=== PATIENT | male | born 1975 | race Caucasian/White ===

== ENCOUNTER 2020-05-08 10:22 | Inpatient (IN) | payer OTHER, SELFPAY ==
[2020-05-08] VITALS (29 sets, daily range): BP systolic 114–181; BP diastolic 82–99; PULSE 79–126; RESP 16–34; TEMP 37.3–39.1; O2SAT 95–100; BMI 23.7
--- NOTE | ~2020-05-08 | CT_ITS ---
EXAMINATION: CT brain wo con DATE: 05/08/2020 13:46 INDICATION: Seizure. Fall. Altered mental state. TECHNIQUE: Computed tomography (CT) of the head was performed without intravenous contrast. The mA wa s adjusted according to patient size. Iterative reconstruction technique was employed. Exam dose: 68 1.00 mGy-cm total exam DLP. COMPARISON: None FINDINGS: There is focal ill-defined asymmetric diminished attenuation in the right periventricular w nisha matter with some asymmetric impression upon the frontal horn of the right lateral ventricle. Rep eat examination with IV contrast or MRI evaluation is recommended to exclude any mass lesion at this site. Otherwise no intracranial mass lesion or hemorrhage, midline shift or mass effect is noted. There is nonspecific diminished attenuation of the cerebral white matter, likely due to chronic small vessel ischemic changes. No subdural or epidural hematoma is detected. No orbital mass lesion. No fracture or bone destruction of the cranial vault. There is mild soft tissue thickening of the sphenoid sinuses. The paranasal sinuses otherwise appear unremarkable. The mastoid air cells are normally developed and aerated. IMPRESSION: Asymmetrical-defined focal diminished attenuation in right periventricular area with imp ression upon the right frontal horn; recommend CT examination with IV contrast material or MR brain s can for further evaluation to exclude any possible malignant mass Nonspecific diminished attenuation cerebral white matter, likely due to chronic small vessel ischemic changes Reviewed, dictated and finalized at [facility]. Reviewed, dictated and finalized at location A. IMPRESSION: Asymmetrical-defined focal diminished attenuation in right periven tricular area with impression upon the right frontal horn; recommend CT examina tion with IV contrast material or MR brain scan for further evaluation to exclu de any possible malignant mass Nonspecific diminished attenuation cerebral white matter, likely due to chronic small vessel ischemic changes
--- NOTE | ~2020-05-08 | XR_ITS ---
XR chest PICC line 05/09/2020 15:44 Indication: PICC line placement Procedure: AP portable chest Comparison: 05/09/2020 Findings: NG tube in the stomach. Endotracheal tube tip 4.9 cm above the jacky. PICC line tip ascend s into the internal jugular vein, distal aspect not visualized. There is bilateral airspace disease w hich may represent edema or pneumonia. Moderate right pleural effusion. No pneumothorax. Impression: 1: Right subclavian PICC line tip extends into the internal jugular vein. 2: Bilateral airspace disease, edema versus pneumonia. 2: Right pleural effusion. Reviewed, dictated and finalized at location A. Impression: 1: Right subclavian PICC line tip extends into the internal jugular vein. 2: Bilateral airspace disease, edema versus pneumonia. 2: Right pleural effusion.
--- NOTE | ~2020-05-08 | XR_ITS ---
EXAMINATION: XR chest 1V portable INDICATION: Pneumonia, acute respiratory failure TECHNIQUE: Portable AP chest at 0600 hours COMPARISON: 05/09/2020 FINDINGS: The endotracheal tube ends approximately 5.0 cm above the jacky. The nasogastric tube is i n the stomach. A right upper extremity PICC ends with its tip at the superior cavoatrial junction. Th ere are unchanged airspace opacities throughout the right lung, worst in the lower lung zone. A small right pleural effusion is stable. There is no pneumothorax. IMPRESSION: 1. Unchanged airspace opacities of the right lung, suspected pneumonia on CT. Reviewed, dictated and finalized at location A. ER HELPER
--- NOTE | ~2020-05-08 | XR_ITS ---
EXAMINATION: XR chest 1V portable INDICATION: Acute respiratory failure, pneumonia TECHNIQUE: Portable AP chest at 0516 hours COMPARISON: 05/08/2020 FINDINGS: The endotracheal tube ends approximately 4.4 cm above the jacky. The nasogastric tube is f ollowed as far as the stomach. Its tip is beyond the inferior margin of the radiograph. Airspace opac ities of the right mid and lower lung zones are unchanged. Minimal airspace opacity of the left lung base is also stable. There is a small right pleural effusion. No pneumothorax is identified. The card iomediastinal silhouette is stable. IMPRESSION: 1. Stable airspace opacities of the lung bases and right midlung zone, likely atelectasis versus pneu monia. 2. Small right pleural effusion. Reviewed, dictated and finalized at location A. IMPRESSION: 1. Stable airspace opacities of the lung bases and right midlung zone, likely a telectasis versus pneumonia. 2. Small right pleural effusion.
--- NOTE | ~2020-05-08 | XR_ITS ---
EXAMINATION: XR chest 1V portable INDICATION: Acute respiratory failure, pneumonia TECHNIQUE: Portable AP chest at 0542 hours COMPARISON: 05/11/2020 FINDINGS: The endotracheal tube ends approximately 3.8 cm above the jacky. The nasogastric tube is f ollowed as far as the stomach. Its tip is beyond the inferior margin of the radiograph. A right upper extremity PICC ends with its tip in the distal superior vena cava. Airspace opacities of the right l gin persist without significant change. The left lung is clear. A small right pleural effusion is sta ble. The heart size is normal. No pneumothorax is identified. IMPRESSION: 1. Stable airspace opacities of the right lung, consistent with pneumonia. Reviewed, dictated and finalized at location A. TURNER
--- NOTE | ~2020-05-08 | XR_ITS ---
EXAMINATION: XR chest 1V portable INDICATION: Pneumonia, acute respiratory failure TECHNIQUE: Portable AP chest at 0558 hours COMPARISON: 05/10/2020 FINDINGS: The endotracheal tube ends approximately 5.1 cm above the jacky. The nasogastric tube is f ollowed as far as the stomach. Its tip is beyond the inferior margin of the radiograph. A right upper extremity PICC ends with its tip at the superior cavoatrial junction. Again seen are airspace opacit ies throughout the right lung, with worsening in the lower lung zone. A small stable right pleural ef fusion is present. There is no pneumothorax. The cardiomediastinal silhouette is stable. IMPRESSION: 1. Right lung airspace opacities with slight worsening in the lung base, likely pneumonia. Reviewed, dictated and finalized at location A. DEHYDRATOR OPERATOR
--- NOTE | ~2020-05-08 | CT_ITS ---
EXAMINATION: CT chest abdomen pelvis w con DATE: 05/09/2020 13:03 INDICATION: Intracranial masses on head CT, altered mental status, assess for malignancy. TECHNIQUE: Transaxial computed tomographic images of the chest, abdomen, and pelvis were obtained aft er the administration of 100 cc of Omnipaque 350 intravenous contrast. The dose-length product (DLP) was 1735.75 mGy-cm. Automated exposure control and iterative reconstruction technique were employed. COMPARISON: None FINDINGS: CHEST CT: There are airspace opacities involving much of the right lower lobe. There are patchy airspace opacit ies in the right lung apex as well as areas of cavitation. There are a few areas of fluid attenuation with apparent gas and cavitation in the right lower lobe. There is right hilar, subcarinal, right pa ratracheal, and right supraclavicular lymphadenopathy. In addition, there is a 2.2 x 2.1 cm right sup rahilar soft tissue density (image 49). No definite discrete mass is identified although the right lo wer lobe bronchus is not well demonstrated There are small pleural effusions. The endotracheal tube i s in adequate position. The heart size is normal. ABDOMEN/PELVIS CT: The nasogastric tube is in the stomach. The liver, spleen, pancreas, and adrenal glands are normal. T here is mild distention of the gallbladder which may be due to fasting state. The kidneys are unremar kable. There is calcified atherosclerosis of the aorta and many of the other arteries. No pathologica lly enlarged abdominal or pelvic lymph nodes are identified. There is no free intraperitoneal gas or evidence of bowel obstruction. The appendix is normal. A Gonzalez catheter, small amount of gas, and sma ll amount of contrast from earlier CT examination are present in the urinary bladder. A moderate volu me of stool is present in the rectum. There is also a moderate volume of colonic stool. There is foca l wall thickening of the colon at the hepatic flexure. IMPRESSION: 1. Right lower lobe airspace opacities with areas suggestive of pulmonary abscess or necrotizing pneu monia. 2. Right suprahilar soft tissue density, mass versus lymphadenopathy. 3. Right hilar, mediastinal, and supraclavicular lymphadenopathy. 4. Possible colonic wall thickening at the hepatic flexure which could be due to incomplete distentio n. Correlate with colonoscopy history. Reviewed, dictated and finalized at location A. IMPRESSION: 1. Right lower lobe airspace opacities with areas suggestive of pulmonary absce ss or necrotizing pneumonia. 2. Right suprahilar soft tissue density, mass versus lymphadenopathy. 3. Right hilar, mediastinal, and supraclavicular lymphadenopathy. 4. Possible colonic wall thickening at the hepatic flexure which could be due t o incomplete distention. Correlate with colonoscopy history.
--- NOTE | ~2020-05-08 | XR_ITS ---
EXAMINATION: XR chest ET placement, XR abdomen NG/feed tube insert DATE: 05/08/2020 10:51 INDICATION: Endotracheal tube placement. Nasogastric tube placement. TECHNIQUE: 1. Portable AP semiupright view of the chest was obtained. 2. Portable upright AP view of the abdomen was obtained. COMPARISON: None FINDINGS: Chest: Endotracheal tube tip 4.2 cm above the jacky. Dense patchy airspace opacities in the right mid to lo wer lung zone. Band of linear discoid atelectasis along with more diffuse less dense opacities in the left lower lung zone. Blunting at the right costophrenic angle consistent with small right pleural e ffusion. No pneumothorax. The cardiomediastinal silhouette is normal. ABDOMEN: Nasogastric tube tip in proximal side port in the body of the stomach. Visual is bowel gas pattern in the upper abdomen is normal. IMPRESSION: 1. Endotracheal tube and nasogastric tube in expected positions. 2. Opacities in the right mid to lower lung zone and to lesser degree left lower lung zone which coul d represent aspiration, pneumonia, atelectasis, pulmonary edema or some combination thereof. 3. Small right pleural effusion. Reviewed, dictated and finalized at location B. IMPRESSION: 1. Endotracheal tube and nasogastric tube in expected positions. 2. Opacities in the right mid to lower lung zone and to lesser degree left lowe r lung zone which could represent aspiration, pneumonia, atelectasis, pulmonary edema or some combination thereof. 3. Small right pleural effusion.
--- NOTE | ~2020-05-08 | XR_ITS ---
XR chest PICC line 05/09/2020 15:45 Indication: PICC line reposition Procedure: AP portable chest Comparison: 05/09/2020 Findings: Right subclavian PICC line has been readjusted with the tip in the condyle aspect of the SV C. Otherwise, no change. Impression: 1: PICC line tip in the SVC. Otherwise, no change. Reviewed, dictated and finalized at location A. Impression: 1: PICC line tip in the SVC. Otherwise, no change.
--- NOTE | ~2020-05-08 | CT_ITS ---
EXAMINATION: CT cervical spine wo con DATE: 05/08/2020 13:46 INDICATION: Seizure. Fall. TECHNIQUE: Computed tomography (CT) of the cervical spine was performed without intravenous contrast. Automated exposure control and iterative reconstruction technique were employed. Exam dose: 463.37 mGy-cm total exam DLP. COMPARISON: None FINDINGS: C1 and C2 are normally aligned and the odontoid process is intact. No fracture or dislocation or locked facet. No prevertebral soft tissue swelling. There is minimal retrolisthesis at C4-5 and C5-6 associated with moderate degenerative disc disease. Uncovertebral joint spurring is noted at C4-5 and C5-6, most prominent on the right at C5-6. ET and o rogastric tubes are noted. Scarring at the right lung apex. IMPRESSION: Degenerative changes; no fracture or dislocation Reviewed, dictated and finalized at [facility]. Reviewed, dictated and finalized at location A.
--- NOTE | ~2020-05-08 | XR_ITS ---
EXAMINATION: XR lumbar puncture diagnostic DATE: 05/11/2020 14:49 INDICATION: Fever and seizures TECHNIQUE: The procedure including the risks and benefits was discussed with the patient's parents. R isks discussed included spinal headache, cerebrospinal fluid leak, bleeding, and infection. The patie nt understood the risks and agreed to proceed. A timeout was performed to verify the patient's nam e, date of , and procedure to be performed. The skin overlying the L4-L5 level was prepped and draped in usual sterile fashion. Subcutaneous 1% lidocaine was used for local anesthesia. A 22 gaug e spinal needle was advanced under fluoroscopic guidance. The needle was removed and the entry site w as cleaned and dressed. There were no immediate complications. The patient was taken to the nursing area for observation. FINDINGS: Real-time fluoroscopy demonstrates the needle at the level. Opening pressure was 47 cm wate r. (Normal range is variably defined as 6-20 cm water and up to 25 cm water in obese patients. Pressu re >25 cm water is one of the modified Dandy criteria for idiopathic intracranial hypertension). 14 mL of cloudy, colorless fluid was collected in 4 tubes. Closing pressure was 20 cm water. IMPRESSION: 1. Successful fluoro-guided lumbar puncture with elevated opening pressure of 47 cm water and yieldin g 14 mL of cloudy colorless fluid. Reviewed, dictated and finalized at location A. HAT BODY MAKER IMPRESSION: 1. Successful fluoro-guided lumbar puncture with elevated opening pressure of 4 7 cm water and yielding 14 mL of cloudy colorless fluid.
--- NOTE | ~2020-05-08 | CT_ITS ---
EXAMINATION: CT brain w con INDICATION: Altered mental status COMPARISON: 05/08/2020 TECHNIQUE: Standard head CT was obtained after the administration of 100 cc of Omnipaque 350 intraven ous contrast. The dose-length product (DLP) was 681.00 mGy-cm. The mA was adjusted according to patie nt size. Iterative reconstruction technique was employed. FINDINGS: At least four rim-enhancing intracranial masses are identified. An 8 mm mass is present in the left bellamy radiata on image 50. A 9 mm subcortical mass is present in the left frontal lobe on i mage 43. There is an 11 mm mass in the right periventricular white matter on image 41. An 8 mm mass i s present in the right thalamus on image 38. Additional masses are questioned measuring 6 near the po sterior horn of the left lateral ventricle on image 45 and measuring 3 mm in the right frontal lobe p eriventricular white matter on image 44. There is no intracranial hemorrhage or acute infarction. The re is minimal mass effect on the anterior horn of the right lateral ventricle. The basal cisterns are patent. The orbits are normal. The paranasal sinuses, mastoids and calvarium are normal. IMPRESSION: 1. Multiple intracranial masses concerning for metastatic disease although differential would include abscesses. These findings and recommendations were discussed with Dr. North at 1201 hours on 04/11. Reviewed, dictated and finalized at location A. IMPRESSION: 1. Multiple intracranial masses concerning for metastatic disease although diff erential would include abscesses. These findings and recommendations were discu ssed with Dr. North at 1201 hours on 05/09/2020.
--- NOTE | 2020-05-08 10:44 | ED.GENADULT ---
HPI - General Adult General Stated complaint: SEIZURE Time Seen by Provider: 05/08/20 10:28 History of Present Illness HPI narrative: 45 years old white male brought to the emergency room with unresponsiveness, recurrent seizure. Patient was seen last doing okay was last night. His father got up from sleep this morning and found him laying down on the floor unresponsive., EMT arrived, patient was unresponsive, few minutes later started having seizure lasted for 30 seconds, few minutes later had another seizure lasted for 1 minute, patient received fentanyl, Versed, succinylcholine, and etomidate, patient was intubated prior to arrival. Patient is running fever up to 102.2. No clear history right now how long the patient been having fever and he been exposed to COVID-19 or not. History of drug abuse. No history of seizure Related Data Allergies Allergy/AdvReac Type Severity Reaction Status Date / Time No Known Allergies Allergy Unknown Verified 04/24/06 16:16 NKFA Allergy Unknown Uncoded 12/31/02 12:34 Review of Systems Review of Systems: ROS unobtainable: Yes unobtainable due to endotracheal tube and unobtainable due to medical condition Exam Narrative: Exam Narrative: General appearance: Well-developed, well-nourished Skin: Normal color Head: Normocephalic, nontraumatic Eyes: Clear conjunctiva ENT: Patient is intubated Neck: Chest and respiratory: Diminished of air entry bilaterally mainly on the right side Heart: Regular rate/rhythm Abdomen: Soft, nontender, no organomegaly, quiet bowel sounds Vascular: Normal peripheral pulses, normal capillary refill. Patient is unresponsive, intubated
[2020-05-08 11:00] LABS: Basophils Percent Auto 0.2 % (0.2-1.2); Eosinophils Percent Auto 0.1 % (0-4.4); Hematocrit 21.3 % (42.0-52.0); Immature Granulocyte Absolute 0.26 K/mm3 (0.00-0.031); Immature Granulocyte Percent A 1.3 % (0-0.5); Lymphocytes Percent Auto 4.5 % (18.3-44.2); Mean Corpuscular HGB Conc 31.9 g/dl (32-36); Mean Corpuscular Hemoglobin 25.9 pg (26-34); Mean Platelet Volume 8.6 fl (7.4-10.4); Monocytes Absolute Auto 0.7 K/mm3 (0.1-0.6); Monocytes Percent Auto 3.7 % (2.6-8.5); Neutrophils Percent Auto 90.2 % (45.5-73.1); Platelet Count Result 510 k/mm3 (150-375); Red Blood Count 2.63 M/mm3 (4.6-6.20); Red Cell Distribution Width 16.3 % (11.5-14.5); White Blood Count 19.9 K/mm3 (4.5-10.0)
[2020-05-08 11:09] LABS: INR 1.6; Partial Thromboplastin Time 24.9 SECONDS (22.3-36.8); Prothrombin Time 18.2 Seconds (11.1-14.7)
[2020-05-08 11:10] LABS: Hemoglobin 6.8 g/dL (14.0-18.0)
[2020-05-08 11:12] LABS: Sodium 129 mmol/L (137-145)
[2020-05-08 11:20] LABS: Albumin Level 2.9 g/dL (3.5-5.1); Alkaline Phosphatase 76 U/L (38-126); Anion Gap 11 mmol/L (8-16); Aspartate Amino Transferase 44 U/L (17-59); Bilirubin,Total 0.3 mg/dL (0.2-1.3); Blood Urea Nitrogen 11 mg/dL (9-20); Calcium 7.6 mg/dL (8.4-10.2); Carbon Dioxide 28 mmol/L (22-30); Chloride 90 mmol/L (98-107); Estimated Glomerular Filt Rate > 60; Glucose 188 mg/dL (75-110); Lactic Acid Reflex 7.1 mmol/L (0.7-2.1); Potassium 2.7 mmol/L (3.4-5.0)
[2020-05-08 11:21] LABS: Alanine Aminotransferase 22 U/L (4-50)
[2020-05-08 11:24] LABS: Alveolar/Arterial O2 Gradient 175.5 mmHg; Base Excess ABG 3.4 mEq/l (+/-2.0); Fractional Inspired Oxygen 100 %; HCO3 ABG 26.4 mEq/l (22.0-26.0); Oxygen Saturation ABG 99.9 % (95.0-100.0); Oxyhemoglobin 98.4 % THb (90.0-100.0); PCO2 ABG 33.1 mmHg (35.0-45.0); PO2 ABG 504.4 mmHg (80.0-100.0); PO2 FiO2 Ratio Arterial Blood 5.04 %
[2020-05-08 11:25] LABS: Device VENTILATOR; Site Drawn LEFT BRACHIAL
[2020-05-08 11:26] LABS: Arterial Blood Gas PEEP 5 cmH2O; Arterial Blood Gas Tidal Volume 500 ml; Arterial Blood Gas Vent Mode CMV; Arterial Blood Gas Ventilator rate 16 /MIN
[2020-05-08 11:34] LABS: CRP 13.8 mg/dL (<1.0)
[2020-05-08 11:43] LABS: Total Hemoglobin 7.6 g/dL (12.0-18.0)
[2020-05-08 12:01] LABS: Add Urine Microscopic? YES; Appearance Urine Clear (Clear); Bacteria Urine Trace /hpf; Bilirubin Urine Negative (Negative); Blood Urine 3+ (Negative); Color Urine Yellow (Yellow); Glucose Urine UA 1+ mg/dL (Negative); Ketones Urine Negative (Negative); Leukocyte Esterase Ur Negative LEU/UL (Negative); Mucus Urine Rare /lpf; Nitrate Urine Negative (Negative); Protein Urine 1+ mg/dL (Negative); Specific Grav Ur 1.015 (1.001-1.035); Squamous Epithelial Cell Urine Occasional /hpf (Few); Urobilinogen Urine Negative mg/dL (<2.0); WBC Urine 0-3 /hpf
[2020-05-08 12:15] LABS: Amphetamine Screen Urine Negative (Negative); Barbiturate Screen Urine Negative (Negative); Benzodiazepines Screen Urine Positive (Negative); Cannabinoid Screen Urine Positive (Negative); Cocaine Screen Urine Negative (Negative); Methadone Screen Urine Negative (Negative); Opiate Screen Urine Positive (Negative); Phencyclidine Screen Urine Negative (Negative)
[2020-05-08] MEDS: PROPOFOL IV EMULSION 100 ML 12 MG IV CONT (12:24)
[2020-05-08] MEDS: SODIUM CHLORIDE 0.9% IV 1,000 ML 999 ML IV CONT ×2 (12:33→12:34)
[2020-05-08] MEDS: KCL 20 MEQ/SW 100 ML 100 ML 50 MEQ IVPB (12:44)
--- NOTE | 2020-05-08 13:00 | PM.IMHP ---
H&P: HPI History of Present Illness Date/Time: 05/08/20 13:00. The patient was seen and evaluated in the emergency department. Chief complaint: Unresponsive. Narrative: Meet Peoples is a 45-year-old male history of anxiety and chronic back pain on long-term opioid therapy who presented to the emergency department earlier this morning via EMS from home for evaluation after he was found unresponsive on the ground by his father this morning. Currently he is sedated and intubated and is unable to provide any medical history. His father has left the emergency department and I have not yet been able to get a hold of family members for history. According to the triage note the patient was complaining of a headache last evening but it sounds as though he was otherwise in his usual state of health. Not long prior to arrival his father found him unresponsive on the ground, and he proceeded to have several seizures thereafter. He was intubated in the field and required heavy sedation even for exam in the emergency department, ultimately requiring paralytics in order to obtain imaging studies. He has been consistently febrile since arrival with a T-max at this facility of 102.3?. Chest x-ray demonstrated findings of possible aspiration, pneumonia, atelectasis, or pulmonary edema and he is empirically being treated for pneumonia. He has no previous history of seizures and given his unresponsiveness this morning there is some concerns for possible meningitis as well. No reports of sick contacts. Review of Systems Review of Systems: Narrative: Unable to be obtained as he is currently sedated and intubated. [facility] Past Medical History Medical History (Updated 05/08/20 @ 20:30 by Angie Hays PA-C) Chronic back pain terminal carman prescription opiate use Surgical History Surgical History (Updated 05/08/20 @ 20:21 by Angie Hays PA-C) Status post excision of lipoma (~07/2002) Bilateral sacral lipomas. Family History Family History Sibling Arthritis, rheumatoid Mother Breast cancer TIA (transient ischemic attack) Father Diabetes mellitus Social History Social History (Updated 05/08/20 @ 20:23 by Angie Hays PA-C) Social History: Surrogate decision maker: The patient's mother, father, and sister Renata are next of kin. Code status: Full code. Smoking status: Current every day smoker Alcohol intake: never Substance use: current Substance use type: marijuana Additional living arrangements comments: Resides resides in [place]. Gender identity (if verbalized by the patient): Male Spiritual care concerns: No Meds Home Medications and Allergies Home Medications Medication Instructions Recorded Confirmed Type alprazolam 0.5 mg PO TID PRN 05/08/20 05/08/20 History amitriptyline 75 mg PO HS 05/08/20 05/08/20 History gabapentin 600 mg PO TID 05/08/20 05/08/20 History hydrocodone-acetaminophen 1 tablet PO Q4H PRN 05/08/20 05/08/20 History triamcinolone acetonide 1 applic TOPICAL BID 05/08/20 05/08/20 History Allergies Allergy/AdvReac Type Severity Reaction Status Date / Time No Known Allergies Allergy Unknown Verified 04/24/06 16:16 NKFA Allergy Unknown Uncoded 12/31/02 12:34 Vital Signs Vital Signs - 24 hr 05/08/20 10:30 05/08/20 12:00 05/08/20 12:15 Temperature Pulse Rate 126 H 110 H 114 H Respiratory Rate 24 H Blood Pressure 169/99 H Pulse Oximetry 100 100 05/08/20 12:24 05/08/20 12:44 05/08/20 12:50 Temperature Pulse Rate 108 H 109 H 112 H Respiratory Rate 23 H 20 22 H Blood Pressure 143/85 H 169/99 H Pulse Oximetry 100 100 05/08/20 13:00 05/08/20 13:05 05/08/20 13:20 Temperature 99.3 F Pulse Rate 111 H 124 H 110 H Respiratory Rate 34 H 24 H Blood Pressure 114/98 H 181/99 H Pulse Oximetry 100 100 100 05/08/20 13:45 05/08/20 14:00 05/08/20 14:35 Temperature Pulse Ra
[2020-05-08] MEDS: RAPID SEQUENCE INTUBATION KIT 1 EACH (13:10)
[2020-05-08] MEDS: LORazepam INJ (*CRX) 2 MG/ML VIAL ×2 (13:10)
--- NOTE | 2020-05-08 13:48 | WPDCNINT ---
Assessment and Plan Assessment and plan (1) Acute respiratory failure: Code(s): J96.00 - Acute respiratory failure, unspecified whether with hypoxia or hypercapnia Status: Acute Assessment and Plan: acute respiratory failure likely secondary to altered mental status, possible increased drug intake - patient was intubated on the field by EMS - chest x-ray shows infiltrates likely aspiration - will continue Zosyn, vancomycin - sedated with propofol, will increase propofol, which will be protective against seizures. If he still requires more sedation will add fentanyl and Versed And may require Nimbex (2) Seizures: Code(s): R56.9 - Unspecified convulsions Status: Acute Assessment and Plan: patient presented with seizures, unknown cause at this time. patient also febrile - will start Keppra - Ativan p.r.n. - will consult neurology CT scan of the brain on 05/08/2020 : IMPRESSION: Asymmetrical-defined focal diminished attenuation in right periventricular area with impression upon the right frontal horn; recommend CT examination with IV contrast material or MR brain scan for further evaluation to exclude any possible malignant mass. Nonspecific diminished attenuation cerebral white matter, likely due to chronic small vessel ischemic changes (3) Anemia: Code(s): D64.9 - Anemia, unspecified Status: Acute Assessment and Plan: hemoglobin of 6.8, positive stool occult in the ER per physician. normocytic anemia - 2 units of packed RBCs have been ordered, - will start Protonix IV b.i.d. - will check iron panel, vitamin B12 and folic acid level (4) Hypokalemia: Code(s): E87.6 - Hypokalemia Status: Acute Assessment and Plan: potassium replaced in the ER, will give additional 40 mEq per feeding tube (5) Severe sepsis: Code(s): A41.9 - Sepsis, unspecified organism; R65.20 - Severe sepsis without septic shock Status: Acute Assessment and Plan: lactic acidosis, fevers, leukocytosis, acute respiratory failure, seizures - adequately fluid-resuscitated - will repeat lactic acid level - start maintenance IV fluid - continue antibiotics as above - blood culture obtained and pending - UA did not reveal UTI (6) Pneumonia: Code(s): J18.9 - Pneumonia, unspecified organism Status: Acute Assessment and Plan: chest x-ray reviewed, likely aspiration pneumonia as above - continue antibiotics (7) Hyperglycemia: Code(s): R73.9 - Hyperglycemia, unspecified Status: Acute Assessment and Plan: Accu-Cheks and sliding scale insulin (8) DVT prophylaxis: Code(s): Z29.9 - Encounter for prophylactic measures, unspecified Status: Acute Assessment and Plan: SCDs, no chemoprophylaxis secondary to anemia (9) Suspected 2019 novel coronavirus infection: Code(s): Z20.828 - Contact with and (suspected) exposure to other viral communicable diseases Status: Acute Assessment and Plan: patient has been swabbed for SARS-CoV-[address] patient under airborne, droplet, contact isolation /precautions Additional Plan tried calling the number in the chart, [phone] to reach the family get additional information, this number has been disconnected or no longer in service. code status, full code critical care time spent: 52 minutes Due to a high probability of clinically significant, life threatening deterioration, the patient required my highest level of preparedness to intervene emergently and I personally spent this critical care time directly and personally managing the patient. This critical care time included obtaining a history; examining the patient; pulse oximetry; ordering and review of studies; arranging urgent treatment with development of a management plan; evaluation of patient's response to treatment; frequent reassessment; and discussions with other provid
[2020-05-08 13:57] LABS: Reflex Lactic Acid Yes or No Add Lactic
[2020-05-08] MEDS: PROPOFOL IV EMULSION 100 ML 15.53 MG IV CONT ×2 (14:10→17:33)
--- NOTE | 2020-05-08 14:33 | PC.NURSE ---
assumed care at 1200 pt unable to stary calm and restrained dr betancur gave verbal to give propofal 20ivp bolus, pt received at 1200,1230,1245,1300 vrbo from suman harding to give hailey 50 mg ivp x1 vrbo to give ativan 4 mg ivp x1 from dr calle pt then went o ct s can when calm and safe to do so pt returbned from ct without issue with aid of resp therapist and sleeper cutter on r eturn to ed, gordon cath was placed as vrbo from dr calle pt to icu 4, told to give bedside report on arrival to icu arrived in icu 4 at 1410
[2020-05-08 15:14] LABS: Hematocrit 16.3 % (42.0-52.0); Hemoglobin 5.2 g/dL (14.0-18.0)
[2020-05-08 15:25] LABS: Lactate Dehydrogenase 649 U/L (313-618)
[2020-05-08 15:25] LABS: Lactic Acid Reflex 1.1 mmol/L (0.7-2.1)
[2020-05-08 15:51] LABS: Anion Gap 5 mmol/L (8-16); Blood Urea Nitrogen 7 mg/dL (9-20); Calcium 6.2 mg/dL (8.4-10.2); Carbon Dioxide 31 mmol/L (22-30); Chloride 98 mmol/L (98-107); Creatine Kinase 1167 U/L (55-170); Estimated CRCL calculation 182 ml/min; Estimated Glomerular Filt Rate > 60; Glucose 111 mg/dL (75-110); Magnesium 1.2 mg/dL (1.6-2.3); Potassium 2.1 mmol/L (3.4-5.0); Sodium 134 mmol/L (137-145)
[2020-05-08 15:55] LABS: Alveolar/Arterial O2 Gradient 103.2 mmHg; Base Excess ABG 5.4 mEq/l (+/-2.0); Carboxyhemoglobin 0.3 % THb (0-2.0); Fractional Inspired Oxygen 40 %; HCO3 ABG 28.2 mEq/l (22.0-26.0); Methemoglobin ABG 0.5 %THb (0-1.5); Oxygen Content ABG 12.3 %vol (16.0-22.0); Oxygen Saturation ABG 99.1 % (95.0-100.0); Oxyhemoglobin 97.8 % THb (90.0-100.0); PO2 ABG 142.9 mmHg (80.0-100.0); PO2 FiO2 Ratio Arterial Blood 3.57 %; Reduced Hemoglobin 1.4 %THb (0-5.0); Total Hemoglobin 8.7 g/dL (12.0-18.0)
[2020-05-08 15:56] LABS: Site Drawn LEFT BRACHIAL; pH ABG 7.536 (7.350-7.450)
[2020-05-08 15:57] LABS: Arterial Blood Gas PEEP 5 cmH2O; Arterial Blood Gas Tidal Volume 500 ml; Arterial Blood Gas Vent Mode CMV; Arterial Blood Gas Ventilator rate 16 /MIN; Device VENTILATOR
[2020-05-08] MEDS: POTASSIUM CHLORIDE 20 MEQ PACKET (FOR LIQUID) 40 MEQ FEED TUBE (16:02)
[2020-05-08] MEDS: SODIUM CHLORIDE 0.9% IV 250 ML 30 ML IV CONT (16:02)
--- NOTE | 2020-05-08 16:31 | ADMGEN ---
This patient, Meet Peoples, was admitted to Intensive Care Unit-4 at 1410. Patient/family oriented to hospital policies and general routines including ID bracelet, bed and alarms, visiting hours, pain management, procedures, bathroom and other care routines, personal items, smoking policy, room service/diet, and visiting hours. Information on how to activate the Rapid Response Team has been discussed. Patient/Family are encouraged to report perceived risks to care and to ask questions if they do not understand what they are told or what they should do.
[2020-05-08] MEDS: MAGNESIUM SULF 1 GM/D5W 100 ML 1 GM/100 ML BAG IVPB (17:40)
[2020-05-08 18:06] LABS: Glucose Point of Care 91 (65-105)
[2020-05-08] MEDS: SODIUM CHLORIDE 0.9% IV 1,000 ML 100 ML IV CONT (18:19)
[2020-05-08 18:42] LABS: Iron < 10 ug/dL (49-181)
[2020-05-08 19:13] LABS: Percent Iron Saturation < 7 % (20-50)
[2020-05-08 19:43] LABS: Folic Acid 2.5 ng/mL (2.76->20)
[2020-05-08] MEDS: MAGNESIUM SULF 2 GM/WATER 50ML 2 GM/50 ML BAG IVPB (21:14)
[2020-05-08] MEDS: levETIRAcetam IV 750 MG in DEXTROSE 5% 100 ML 430 MG IVPB (21:19)
[2020-05-08] MEDS: PANTOPRAZOLE SODIUM IV 40 MG VIAL IV PUSH (21:20)
[2020-05-08 22:07] LABS: SARS-CoV-2 RNA PCR Negative
[2020-05-08] MEDS: ACYCLOVIR SODIUM IVPB 800 MG in DEXTROSE 5% IN WATER 250 ML 266 MG IVPB (22:24)
[2020-05-08] MEDS: PROPOFOL IV EMULSION 100 ML 20.71 MG IV CONT (22:33)
[2020-05-08 23:34] LABS: Anion Gap 6 mmol/L (8-16); Blood Urea Nitrogen 4 mg/dL (9-20); Calcium 6.3 mg/dL (8.4-10.2); Carbon Dioxide 27 mmol/L (22-30); Chloride 99 mmol/L (98-107); Creatine Kinase 1383 U/L (55-170); Estimated CRCL calculation 221 ml/min; Estimated Glomerular Filt Rate > 60; Glucose 213 mg/dL (75-110); Magnesium 1.9 mg/dL (1.6-2.3); Potassium 2.3 mmol/L (3.4-5.0); Sodium 132 mmol/L (137-145)
[2020-05-08 23:38] LABS: Hemoglobin 9.3 g/dL (14.0-18.0)
[2020-05-08 23:54] LABS: Lactic Acid Reflex 2.5 mmol/L (0.7-2.1)
[2020-05-09] VITALS (31 sets, daily range): BP systolic 127–142; BP diastolic 71–95; PULSE 92–114; RESP 13–28; TEMP 37–38.6; O2SAT 98–100
[2020-05-09 00:04] LABS: Glucose Point of Care 100 (65-105)
--- NOTE | 2020-05-09 00:04 | PC.NURSE ---
Patient transferred to ICU 7. Report given to Chaparrita PRINCE.
[2020-05-09] MEDS: POTASSIUM CHLORIDE 20 MEQ PACKET (FOR LIQUID) 40 MEQ FEED TUBE (00:47)
[2020-05-09 02:36] LABS: Reflex Lactic Acid Yes or No Add Lactic
[2020-05-09 03:05] LABS: Lactic Acid 1.1 mmol/L (0.7-2.1)
[2020-05-09 03:56] LABS: Alveolar/Arterial O2 Gradient 108.7 mmHg; Base Excess ABG 5.4 mEq/l (+/-2.0); Carboxyhemoglobin 0.3 % THb (0-2.0); Fractional Inspired Oxygen 40 %; HCO3 ABG 28.3 mEq/l (22.0-26.0); Methemoglobin ABG 0.4 %THb (0-1.5); Oxygen Content ABG 14.1 %vol (16.0-22.0); Oxyhemoglobin 97.6 % THb (90.0-100.0); PCO2 ABG 34.7 mmHg (35.0-45.0); PO2 ABG 136.6 mmHg (80.0-100.0); PO2 FiO2 Ratio Arterial Blood 3.42 %; Reduced Hemoglobin 1.7 %THb (0-5.0); Total Hemoglobin 10.1 g/dL (12.0-18.0)
[2020-05-09 03:58] LABS: pH ABG 7.529 (7.350-7.450)
[2020-05-09 03:59] LABS: Arterial Blood Gas Ventilator rate 16 /MIN; Device VENTILATOR; Modified Allen's Test Pass; Site Drawn RIGHT RADIAL
[2020-05-09 04:00] LABS: Arterial Blood Gas PEEP 5 cmH2O; Arterial Blood Gas Tidal Volume 500 ml; Arterial Blood Gas Vent Mode CMV
[2020-05-09] MEDS: PROPOFOL IV EMULSION 100 ML 20.71 MG IV CONT ×5 (04:12→21:27)
[2020-05-09] MEDS: ACYCLOVIR SODIUM IVPB 800 MG in DEXTROSE 5% IN WATER 250 ML 266 MG IVPB ×3 (05:36→22:10)
[2020-05-09 05:43] LABS: Glucose Point of Care 115 (65-105)
[2020-05-09 07:20] LABS: Creatine Kinase 1066 U/L (55-170); Lactate Dehydrogenase 726 U/L (313-618)
[2020-05-09 07:26] LABS: Lactic Acid Reflex 1.2 mmol/L (0.7-2.1)
[2020-05-09 07:34] LABS: Alanine Aminotransferase 22 U/L (4-50); Albumin Level 2.8 g/dL (3.5-5.1); Alkaline Phosphatase 81 U/L (38-126); Anion Gap 7 mmol/L (8-16); Aspartate Amino Transferase 59 U/L (17-59); Bilirubin,Total 0.6 mg/dL (0.2-1.3); Blood Urea Nitrogen 3 mg/dL (9-20); Carbon Dioxide 32 mmol/L (22-30); Chloride 90 mmol/L (98-107); Estimated CRCL calculation 182 ml/min; Estimated Glomerular Filt Rate > 60; Glucose 184 mg/dL (75-110); Magnesium 1.6 mg/dL (1.6-2.3); Phosphorus 1.4 mg/dL (2.5-4.5); Potassium 2.5 mmol/L (3.4-5.0); Sodium 129 mmol/L (137-145)
[2020-05-09] MEDS: levETIRAcetam IV 750 MG in DEXTROSE 5% 100 ML 430 MG IVPB ×2 (07:59→20:45)
[2020-05-09] MEDS: MAGNESIUM SULF 2 GM/WATER 50ML 2 GM/50 ML BAG IVPB (08:04)
[2020-05-09] MEDS: PANTOPRAZOLE SODIUM IV 40 MG VIAL IV PUSH ×2 (08:05→22:11)
[2020-05-09] MEDS: POTASSIUM CHLORIDE 20 MEQ PACKET (FOR LIQUID) 40 MEQ PO (08:06)
[2020-05-09 08:07] LABS: CRP 19.3 mg/dL (<1.0)
--- NOTE | 2020-05-09 08:50 | WPDGICN ---
Assessment and Plan Assessment and plan (1) Anemia: Code(s): D64.9 - Anemia, unspecified Status: Acute Assessment and Plan: Patient with rather profound anemia. Iron indices reveal a low iron and low TIBC low for % saturation but an elevated ferritin all consistent with anemia chronic disease. This is suggestive that this is a rather chronic anemia. Occult blood was identified in the stool stool According to the ER note.. Hemoccult will be repeated to confirm this. At the present time no active bleeding has been identified. We will cover the patient with acid suppression for possible stress ulceration her stress gastritis. Patient is in no condition to undergo invasive testing at the time but hemoglobin will be monitored conservatively. (2) Rhabdomyolysis: Code(s): M62.82 - Rhabdomyolysis Status: Acute Assessment and Plan: Patient appears to have rhabdomyolysis likely from being found unconscious by his father. Supportive care with IV hydration eccentric at this time. (3) Acute respiratory failure: Code(s): J96.00 - Acute respiratory failure, unspecified whether with hypoxia or hypercapnia Status: Acute (4) Seizures: Code(s): R56.9 - Unspecified convulsions Status: Acute GI Consult Note Consult date/time: 05/09/20 08:50 HPI: Meet Peoples is a 45 year old male I am asked to see at the request of the credit director service. Because of anemia and occult blood in stool. Patient apparently was found by his father last evening unresponsive. He subsequently was sent to the hospital in intubated in the field. Apparently had seizure-like activity. After admission the hospital patient was found to have significant anemia with a hemoglobin approximately 6.8, stool Hemoccult was confirmed to be positive. No active bleeding has been described since he has been in the intensive care unit. Past medical history is not readily available. Patient has subsequently been transfused with good response to hemoglobin currently approximately 9-07/11. 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 Family History Family History Sibling Arthritis, rheumatoid Mother Breast cancer TIA (transient ischemic attack) Father Diabetes mellitus Social History Social History (Updated 05/08/20 @ 20:23 by Angie Hays PA-C) Social History: Surrogate decision maker: The patient's mother, father, and sister Renata are next of kin. Code status: Full code. Smoking status: Current every day smoker Alcohol intake: never Substance use: current Substance use type: marijuana Additional living arrangements comments: Resides resides in [place]. Gender identity (if verbalized by the patient): Male Spiritual care concerns: No Meds Home Medications and Allergies Home Medications Medication Instructions Recorded Confirmed Type alprazolam 0.5 mg PO TID PRN 05/08/20 05/08/20 History amitriptyline 75 mg PO HS 05/08/20 05/08/20 History gabapentin 600 mg PO TID 05/08/20 05/08/20 History hydrocodone-acetaminophen 1 tablet PO Q4H PRN 05/08/20 05/08/20 History triamcinolone acetonide 1 applic TOPICAL BID 05/08/20 05/08/20 History Allergies Allergy/AdvReac Type Severity Reaction Status Date / Time No Known Allergies Allergy Unknown Verified 04/24/06 16:16 NKFA Allergy Unknown Uncoded 12/31/02 12:34 Vital Signs Vital Signs - 24 hr 05/08/20 10:30 05/08/20 12:00 05/08/20 12:15 Temperature Pulse Rate 126 H 110 H 114 H Res
[2020-05-09 09:01] LABS: Basophils Percent Auto 0.2 % (0.2-1.2); Hematocrit 26.8 % (42.0-52.0); Hemoglobin 8.7 g/dL (14.0-18.0); Immature Granulocyte Absolute 0.15 K/mm3 (0.00-0.031); Immature Granulocyte Percent A 0.8 % (0-0.5); Lymphocytes Absolute Auto 1.37 K/mm3 (0.9-3.2); Lymphocytes Percent Auto 6.9 % (18.3-44.2); Mean Corpuscular HGB Conc 32.5 g/dl (32-36); Mean Corpuscular Hemoglobin 26.2 pg (26-34); Mean Corpuscular Volume 80.7 fl (80-100); Mean Platelet Volume 8.8 fl (7.4-10.4); Monocytes Percent Auto 5.1 % (2.6-8.5); Neutrophils Absolute Auto 17.3 K/mm3 (1.3-6.7); Platelet Count Result 436 k/mm3 (150-375); Red Blood Count 3.32 M/mm3 (4.6-6.20); White Blood Count 19.9 K/mm3 (4.5-10.0)
[2020-05-09 09:44] LABS: Creatinine Urine 5.7 mg/dL
--- NOTE | 2020-05-09 09:45 | P.PNIM_ITS ---
Progress Note: A&P Assessment and Plan (1) Pneumonia: Qualifiers: Pneumonia type: due to unspecified organism Laterality: bilateral Lung location: unspecified part of lung Qualified Code(s): J18.9 - Pneumonia, unspecified organism Code(s): J18.9 - Pneumonia, unspecified organism Status: Acute Assessment and Plan: * Continue Vanc/ceftriaxone day 1 (2) Severe sepsis: Code(s): A41.9 - Sepsis, unspecified organism; R65.20 - Severe sepsis without septic shock Status: Acute Assessment and Plan: * Due to pneumonia (3) Acute respiratory failure: Qualifiers: Respiratory failure complication: hypoxia Qualified Code(s): J96.01 - Acute respiratory failure with hypoxia Code(s): J96.00 - Acute respiratory failure, unspecified whether with hypoxia or hypercapnia Status: Acute Assessment and Plan: * Due to pneumonia, encephalopathy (4) Seizures: Code(s): R56.9 - Unspecified convulsions Status: Acute Assessment and Plan: * Etiology unclear: drug w/d vs drug ingestion vs hypoxia vs head trauma vs neoplasm vs demyelination (FIRMWARE DEVELOPER infection unlikely) (5) Abnormal brain CT: Code(s): R90.89 - Other abnormal findings on diagnostic imaging of central nervous system Status: Acute Assessment and Plan: * neoplasm vs stroke vs atherosclerosis vs artifact (6) Rhabdomyolysis: Qualifiers: Rhabdomyolysis type: non-traumatic Qualified Code(s): M62.82 - Rhabdomyolysis Code(s): M62.82 - Rhabdomyolysis Status: Acute Assessment and Plan: * Found down after unknown period (7) Hypomagnesemia: Code(s): E83.42 - Hypomagnesemia Status: Acute Assessment and Plan: * Likely due to poor intake, volume depletion * IV repletion (8) Hypokalemia: Code(s): E87.6 - Hypokalemia Status: Acute Assessment and Plan: * Likely duetopoorintake,volumedepletion * IVrepletion (9) Hyponatremia: Code(s): E87.1 - Hypo-osmolality and hyponatremia Status: Acute Assessment and Plan: * Likelyduetopoorintake,volumedepletion * IVrepletion (10) Encephalopathy: Code(s): G93.40 - Encephalopathy, unspecified Status: Acute Assessment and Plan: * Due to pneumonia, sepsis, seizure, electrolytes (11) Hyperglycemia: Code(s): R73.9 - Hyperglycemia, unspecified Status: Acute Assessment and Plan: * Likely due to severe sepsis * Resolved (12) Anemia: Qualifiers: Anemia type: unspecified type Qualified Code(s): D64.9 - Anemia, unspecified Code(s): D64.9 - Anemia, unspecified Status: Acute Assessment and Plan: * Suspected GI losses * Transfuse to maintain hgb 7 or greater * PPI for GI prophylaxis * Monitor for s/sx bleeding Subjective Date/time seen: 05/09/20 09:45 Interval history: 05/09: unresponsive on vent after being found down 05/08. Review of Systems Review of Systems: ROS unobtainable: Yes unobtainable due to medical condition Exam Narrative: Exam Narrative: HEENT: Pupils midpoint and sluggish, sclerae nonicteric, pharyngeal mucosa pink and intact NECK: No JVD, adenopathy, or thyromegaly CHEST: Clear to auscultation. Normal effort. HEART: NL S1/S2, regular, no murmur ABDOMEN: BS+, soft, nontender, no mass, no bruits EXTREMITIES: No cyanosis, edema, or clubbing NEUROLOGIC: CN intact
--- NOTE | 2020-05-09 09:45 | PM.IMPN ---
Progress Note: A&P Assessment and Plan (1) Pneumonia: Qualifiers: Pneumonia type: due to unspecified organism Laterality: bilateral Lung location: unspecified part of lung Qualified Code(s): J18.9 - Pneumonia, unspecified organism Code(s): J18.9 - Pneumonia, unspecified organism Status: Acute Assessment and Plan: Continue Vanc/ceftriaxone day 1 (2) Severe sepsis: Code(s): A41.9 - Sepsis, unspecified organism; R65.20 - Severe sepsis without septic shock Status: Acute Assessment and Plan: Due to pneumonia (3) Acute respiratory failure: Qualifiers: Respiratory failure complication: hypoxia Qualified Code(s): J96.01 - Acute respiratory failure with hypoxia Code(s): J96.00 - Acute respiratory failure, unspecified whether with hypoxia or hypercapnia Status: Acute Assessment and Plan: Due to pneumonia, encephalopathy (4) Seizures: Code(s): R56.9 - Unspecified convulsions Status: Acute Assessment and Plan: Etiology unclear: drug w/d vs drug ingestion vs hypoxia vs head trauma vs neoplasm vs demyelination (MARINE SPECIALIST infection unlikely) (5) Abnormal brain CT: Code(s): R90.89 - Other abnormal findings on diagnostic imaging of central nervous system Status: Acute Assessment and Plan: neoplasm vs stroke vs atherosclerosis vs artifact (6) Rhabdomyolysis: Qualifiers: Rhabdomyolysis type: non-traumatic Qualified Code(s): M62.82 - Rhabdomyolysis Code(s): M62.82 - Rhabdomyolysis Status: Acute Assessment and Plan: Found down after unknown period (7) Hypomagnesemia: Code(s): E83.42 - Hypomagnesemia Status: Acute Assessment and Plan: Likely due to poor intake, volume depletion IV repletion (8) Hypokalemia: Code(s): E87.6 - Hypokalemia Status: Acute Assessment and Plan: Likely duetopoorintake,volumedepletion IVrepletion (9) Hyponatremia: Code(s): E87.1 - Hypo-osmolality and hyponatremia Status: Acute Assessment and Plan: Likelyduetopoorintake,volumedepletion IVrepletion (10) Encephalopathy: Code(s): G93.40 - Encephalopathy, unspecified Status: Acute Assessment and Plan: Due to pneumonia, sepsis, seizure, electrolytes (11) Hyperglycemia: Code(s): R73.9 - Hyperglycemia, unspecified Status: Acute Assessment and Plan: Likely due to severe sepsis Resolved (12) Anemia: Qualifiers: Anemia type: unspecified type Qualified Code(s): D64.9 - Anemia, unspecified Code(s): D64.9 - Anemia, unspecified Status: Acute Assessment and Plan: Suspected GI losses Transfuse to maintain hgb 7 or greater PPI for GI prophylaxis Monitor for s/sx bleeding Subjective Date/time seen: 05/09/20 09:45 Interval history: 05/09: unresponsive on vent after being found down 05/08. Review of Systems Review of Systems: ROS unobtainable: Yes unobtainable due to medical condition Exam Narrative: Exam Narrative: HEENT: Pupils midpoint and sluggish, sclerae nonicteric, pharyngeal mucosa pink and intact NECK: No JVD, adenopathy, or thyromegaly CHEST: Clear to auscultation. Normal effort. HEART: NL S1/S2, regular, no murmur ABDOMEN: BS+, soft, nontender, no mass, no bruits EXTREMITIES: No cyanosis, edema, or clubbing NEUROLOGIC: CN intact and symmetric to inspection. Negative doll's eyes. No corneal reflexes. Bilateral upgoing toes. MUSCULOSKELETAL: Tone symmetric. PSYCH: Unresponsive to verbal or noxious stimuli. Objective Data Vital Signs Vital Signs: Vital Signs - 24 hr 05/08/20 10:30 05/08/20 12:00 05/08/20 12:15 Temperature Pulse Rate 126 H 110 H 114 H Respiratory Rate 24 H Blood Pressure 169/99 H Pulse Oximetry 100 100 05/08/20 12:24 05/08/20 12:44 05/08/20 12:50 Temperature Pulse Rate 108 H 109 H 112 H Respirato
[2020-05-09 09:47] LABS: Potassium Urine Random 7.2 meq/L; Sodium Urine Random 23 meq/L
--- NOTE | 2020-05-09 10:18 | PM.CNNEP ---
Assessment and Plan Assessment and plan (1) Electrolyte abnormality: Code(s): E87.8 - Other disorders of electrolyte and fluid balance, not elsewhere classified Status: Acute Assessment and Plan: This is a very complex situation. The biggest difficulties it we have no knowledge of what happened before he was found by his father. 1. He has a triple acid-base defect. He has respiratory alkalosis which may be from the ventilator. There was no blood gas from before intubation. If he breathes over the vent and this continues than 1 might consider whether the brain lesion seen on CT might be causing this. He has metabolic acidosis due to lactic acidosis. This is most likely due to his seizure. This rapidly corrected itself. His anion gap was high for him at 11 on the 1st check. Lately his anion gap is down to 5 coinciding with the resolution of the lactic acidosis. He has a metabolic alkalosis also. Etiology of this is less clear. This was present on admission. Usually this might be due to dehydration or hypokalemia. He was lying there for an unknown amount of time and so could have been dehydrated. In addition he is hypokalemic which also causes persistent metabolic alkalosis. 2. He has polyuria. His urine specific gravity is 1.015. His serum sodium is low. These argue against diabetes insipidus. One possibility would be that he had bladder retention. Bladder retention could be from BPH (however he is young for this); narcotic induced bladder atony could do this as well. Both of these would be resolved with Gonzalez and if enough retention had occurred he could have a post obstructive diuresis. Osmotixc diuresis could cause this amount of urine. He of course has not received mannitol, urea product, or TPN and does not have a high bun. Sugars are high but not high enough to trigger osmotic diuresis by exceeding the tubular maximum for glucose. There is no history of him taking a SGLT2 inhibitor. Recovery from hyponatremia could cause this as well as he is off narcotics and Amitriptyline, and getting IV fluids.. Serum and urine osmolality have already been checked by . He is getting some isotonic IV fluids now. This can continue. If his serum sodium rises above normal and his high urine output continues, then DDAVP would be an option. 3. The patient has hypokalemia. This might be due to nausea and vomiting or poor intake at home. 4. The patient has hyponatremia. This might be due to the Amitriptyline or due to the narcotics which can each cause SIADH. 5. The patient has hypomagnesemia. This is likely nutritional It is unclear what medicines the patient might have gotten hold of before this, however there is no history of him taking prescription meds that he was not supposed to have. If he took large amounts of diuretics before he was picked up then this could explain all of this. Bartter's or Gitelman syndromes could explain some of this as well. There is no prior lab available. We can try to get some old records from his doctor's. (2) Abnormal brain CT: Code(s): R90.89 - Other abnormal findings on diagnostic imaging of central nervous system Status: Acute Assessment and Plan: The patient has hypo attenuation on his CT. He will get further studies. (3) Rhabdomyolysis: Code(s): M62.82 - Rhabdomyolysis Status: Acute Assessment and Plan: The patient has a CPK of 1000. He is getting IV fluids and his high urine output is also somewhat protective. (4) Elevated blood pressure reading: Code(s): R03.0 - Elevated blood-pressure reading, without diagnosis of hypertension Status: Acute Assessment and Plan: His blood pressure is running pretty well right now. (5) Acute respiratory failure: Code(s): J96.00 - Acute respiratory failure, unspecified whether with hypoxia or hypercapnia Status: Acute Assessment and Plan: He is on
[2020-05-09] MEDS: SODIUM CHLORIDE 0.9% IV 1,000 ML 100 ML IV CONT (11:25)
[2020-05-09 11:42] LABS: Glucose Point of Care 130 (65-105)
[2020-05-09 12:31] LABS: Creatinine Urine 5.2 mg/dL; Total Protein Urine Random 15 mg/dL
--- NOTE | 2020-05-09 12:43 | WPDNEURCNPN ---
Assessment and Plan Assessment and plan (1) Encephalopathy: Code(s): G93.40 - Encephalopathy, unspecified Status: Acute (2) Electrolyte abnormality: Code(s): E87.8 - Other disorders of electrolyte and fluid balance, not elsewhere classified Status: Acute (3) Abnormal brain CT: Code(s): R90.89 - Other abnormal findings on diagnostic imaging of central nervous system Status: Acute (4) Rhabdomyolysis: Code(s): M62.82 - Rhabdomyolysis Status: Acute (5) Hypomagnesemia: Code(s): E83.42 - Hypomagnesemia Status: Acute (6) Elevated blood pressure reading: Code(s): R03.0 - Elevated blood-pressure reading, without diagnosis of hypertension Status: Acute (7) Suspected 2019 novel coronavirus infection: Code(s): Z20.828 - Contact with and (suspected) exposure to other viral communicable diseases Status: Acute (8) DVT prophylaxis: Code(s): Z29.9 - Encounter for prophylactic measures, unspecified Status: Acute (9) Hyperglycemia: Code(s): R73.9 - Hyperglycemia, unspecified Status: Acute (10) Pneumonia: Code(s): J18.9 - Pneumonia, unspecified organism Status: Acute (11) Severe sepsis: Code(s): A41.9 - Sepsis, unspecified organism; R65.20 - Severe sepsis without septic shock Status: Acute (12) Anemia: Code(s): D64.9 - Anemia, unspecified Status: Acute (13) Acute respiratory failure: Code(s): J96.00 - Acute respiratory failure, unspecified whether with hypoxia or hypercapnia Status: Acute (14) Seizures: Code(s): R56.9 - Unspecified convulsions Status: Acute Additional Plan agree with the management as such there is continuation of the anticonvulsants, repeating the CT scan, and possibly spinal tap if can be done otherwise continue the antibiotic as such Consult date: 05/09/20 Time Seen: 12:15 HPI: Meet Peoples is a 45 year old maleAdmitted to the hospital through the emergency room where he presented early this morning via EMS from home with the complaints that he was found unresponsive on the ground by his father in the morning. Patient has ongoing history of chronic back pain and has been on long-term opiate therapy in addition to the history of anxiety. Further information could not be obtained from him because he was sedated intubated and unable to provide any medical history as per the information available from the patient's Emergency Room records he was complaining of headache evening before and it sounded as though he was not he in his usual state of health. He was noted to have several seizures in the morning he was intubated in the field and required heavy sedation even for exam in the emergency room. Ultimately he was started on paralytics in order to obtain the imaging studies and has been noted leak consistently febrile with a maximum temperature of 102.3?. Chest x-ray documented possible aspiration pneumonia for which he was given the treatment accordingly. He has been seen by the critical care personnel is for the acute respiratory failure and the documentation of infiltration by chest x-ray is started on Zosyn and vancomycin with sedation with propofol and also started on Keppra. CT scan has documented asymmetrical define focal diminished attenuation in the right periventricular area with impression upon the right frontal Ania his hemoglobin is only 6.8 with positive stool occult normocytic anemia packed RBCs have been ordered. He has received potassium supplement through the feeding tube and is being treated for the sepsis with pneumonia patient has already been seen by the compressor mechanic because a positive occult blood in the stool he has been documented to have low iron and low TIBC low saturation and elevated ferritin consistent with the anemia of chronic disease and also has been documented to have rhabdomyolysis patient has already been seen by the
--- NOTE | 2020-05-09 12:52 | WPDINTPN ---
Progress Note: A&P Assessment and Plan (1) Electrolyte abnormality: Code(s): E87.8 - Other disorders of electrolyte and fluid balance, not elsewhere classified Status: Acute Assessment and Plan: Potassium being aggressively replaced along with phosphorus and magnesium - patient had11 L urine output, consulted nephrology - check urine lytes, urine and serum osmolality - patient also has possible rhabdomyolysis - appreciate Nephrology evaluation recommendations, will continue to hydrate patient at this time (2) Acute respiratory failure: Code(s): J96.00 - Acute respiratory failure, unspecified whether with hypoxia or hypercapnia Status: Acute Assessment and Plan: acute respiratory failure likely secondary to altered mental status, possible increased drug intake - patient was intubated on the field by EMS on 05/08/2020 - chest x-ray shows infiltrates likely aspiration - will continue Zosyn, vancomycin - sedated with propofol, maintain RASS of 0 to -2, (3) Seizures: Code(s): R56.9 - Unspecified convulsions Status: Acute Assessment and Plan: patient presented with seizures, unknown cause at this time. patient also febrile - continue Kesilveriora - Ativan p.r.n. - neurology has been consulted - LP will be done after CT scan of the brain With contrast was done which showed questionable metastasis, per Dr. Schwarz, he called and discussed and stated that we may need to obtain a CT scan of the chest with contrast. I ordered a CT scan of the chest and abdomen /pelvis with contrast. After which she would decided the patient would be suitable to get an lumbar puncture - Discussed with neurology, agree with Sherri, lumbar puncture given patient has been febrile with a T-max of 102.3? CT scan of the brain on 05/08/2020 : IMPRESSION: Asymmetrical-defined focal diminished attenuation in right periventricular area with impression upon the right frontal horn; recommend CT examination with IV contrast material or MR brain scan for further evaluation to exclude any possible malignant mass. Nonspecific diminished attenuation cerebral white matter, likely due to chronic small vessel ischemic changes (4) Anemia: Code(s): D64.9 - Anemia, unspecified Status: Acute Assessment and Plan: hemoglobin of 6.8, positive stool occult in the ER per physician. normocytic anemia - 2 units of packed RBCs have been ordered, - continue PPI IV q.12 hours - iron studies reflective of anemia of chronic disease. - appreciate GI evaluation recommendations. Stool for occult blood has been reordered per GI (5) Severe sepsis: Code(s): A41.9 - Sepsis, unspecified organism; R65.20 - Severe sepsis without septic shock Status: Acute Assessment and Plan: lactic acidosis, fevers, leukocytosis, acute respiratory failure, seizures - adequately fluid-resuscitated - repeat lactic acid levels are normal - continue maintenance IV fluids at 150 mL/hour - continue antibiotics as above - blood culture obtained and pending - UA did not reveal UTI (6) Pneumonia: Code(s): J18.9 - Pneumonia, unspecified organism Status: Acute Assessment and Plan: chest x-ray reviewed, likely aspiration pneumonia as above - continue antibiotics (7) Hyperglycemia: Code(s): R73.9 - Hyperglycemia, unspecified Status: Acute Assessment and Plan: Accu-Cheks and sliding scale insulin (8) DVT prophylaxis: Code(s): Z29.9 - Encounter for prophylactic measures, unspecified Status: Acute Assessment and Plan: SCDs, no chemoprophylaxis secondary to anemia (9) Suspected 2019 novel coronavirus infection: Code(s): Z20.828 - Contact with and (suspected) exposure to other viral communicable diseases Status: Acute Assessment and Plan: SARS-CoV-2 PCR, NEGATIVE for COVID-19 discontinue all precautions (10) Encephalopathy:
[2020-05-09] MEDS: POTASSIUM PHOS,M-BASIC-D-BASIC 20 MMOL in SODIUM CHLORIDE 0.9% IV 250 ML 62.5 MMOL IVPB (13:15)
[2020-05-09 17:04] LABS: Glucose Point of Care 86 (65-105)
[2020-05-09] MEDS: LIDOCAINE HCL 1% PF INJ 5 ML VIAL INFILTRATE (17:06)
[2020-05-09] MEDS: CENTRAL LINE FLUSH 10 ML IV PUSH (20:10)
[2020-05-09] MEDS: SODIUM CHLORIDE 0.9% IV 1,000 ML 150 ML IV CONT (22:14)
[2020-05-10] VITALS (31 sets, daily range): BP systolic 135–154; BP diastolic 88–97; PULSE 99–118; RESP 16–37; TEMP 36.8–38.3; O2SAT 94–100
[2020-05-10 00:12] LABS: Glucose Point of Care 176 (65-105)
--- NOTE | 2020-05-10 01:02 | PC.NURSE ---
Daylight Savings Time For Daylight Savings Time Ending in the Fall - Clocks are moved back. For Daylight Savings Time Beginning in the Spring - Clocks are moved ahead. For [facility], the time of change occurs at 0200 hrs. Time is taken from the patient observer. This entry on the patient's chart recognizes the change in time reflected during documentation. Example: 2 entries for vital signs may be charted for 0200 hrs.
[2020-05-10] MEDS: PROPOFOL IV EMULSION 100 ML 20.71 MG IV CONT ×2 (02:36→06:38)
[2020-05-10 04:29] LABS: Alveolar/Arterial O2 Gradient 77.9 mmHg; Carboxyhemoglobin 0.3 % THb (0-2.0); Fractional Inspired Oxygen 30 %; HCO3 ABG 26.9 mEq/l (22.0-26.0); Methemoglobin ABG 0.5 %THb (0-1.5); Oxygen Content ABG 14.5 %vol (16.0-22.0); Oxygen Saturation ABG 97.9 % (95.0-100.0); Oxyhemoglobin 96.7 % THb (90.0-100.0); PCO2 ABG 34.2 mmHg (35.0-45.0); PO2 ABG 95.8 mmHg (80.0-100.0); PO2 FiO2 Ratio Arterial Blood 3.19 %; Reduced Hemoglobin 2.5 %THb (0-5.0); Total Hemoglobin 10.6 g/dL (12.0-18.0)
[2020-05-10 04:32] LABS: Device VENTILATOR; Modified Allen's Test Pass; Site Drawn LEFT RADIAL; pH ABG 7.514 (7.350-7.450)
[2020-05-10 04:33] LABS: Arterial Blood Gas PEEP 5 cmH2O; Arterial Blood Gas Tidal Volume 500 ml; Arterial Blood Gas Vent Mode CMV; Arterial Blood Gas Ventilator rate 14 /MIN
[2020-05-10] MEDS: CENTRAL LINE FLUSH 10 ML IV PUSH ×3 (05:04→20:14)
[2020-05-10] MEDS: ACYCLOVIR SODIUM IVPB 800 MG in DEXTROSE 5% IN WATER 250 ML 266 MG IVPB ×3 (05:25→20:14)
[2020-05-10] MEDS: SODIUM CHLORIDE 0.9% IV 1,000 ML 150 ML IV CONT (05:26)
[2020-05-10 05:41] LABS: Glucose Point of Care 130 (65-105)
[2020-05-10 06:56] LABS: Lactic Acid Reflex 1.8 mmol/L (0.7-2.1)
[2020-05-10 06:57] LABS: Hematocrit 28.5 % (42.0-52.0); Hemoglobin 9.2 g/dL (14.0-18.0); Mean Corpuscular HGB Conc 32.3 g/dl (32-36); Mean Corpuscular Hemoglobin 26.4 pg (26-34); Mean Corpuscular Volume 81.9 fl (80-100); Mean Platelet Volume 8.7 fl (7.4-10.4); Platelet Count Result 470 k/mm3 (150-375); Red Blood Count 3.48 M/mm3 (4.6-6.20); Red Cell Distribution Width 16.4 % (11.5-14.5); White Blood Count 29.6 K/mm3 (4.5-10.0)
[2020-05-10 07:16] LABS: Alanine Aminotransferase 23 U/L (4-50); Albumin Level 2.6 g/dL (3.5-5.1); Alkaline Phosphatase 97 U/L (38-126); Anion Gap 7 mmol/L (8-16); Aspartate Amino Transferase 37 U/L (17-59); Bilirubin,Total 0.4 mg/dL (0.2-1.3); Blood Urea Nitrogen 7 mg/dL (9-20); CRP 23.7 mg/dL (<1.0); Calcium 7.2 mg/dL (8.4-10.2); Carbon Dioxide 29 mmol/L (22-30); Chloride 93 mmol/L (98-107); Creatine Kinase 298 U/L (55-170); Estimated CRCL calculation 221 ml/min; Estimated Glomerular Filt Rate > 60; Glucose 152 mg/dL (75-110); Magnesium 1.6 mg/dL (1.6-2.3); Phosphorus 2.6 mg/dL (2.5-4.5); Potassium 2.9 mmol/L (3.4-5.0); Sodium 129 mmol/L (137-145)
[2020-05-10] MEDS: PANTOPRAZOLE SODIUM IV 40 MG VIAL IV PUSH ×2 (08:00→20:14)
[2020-05-10] MEDS: levETIRAcetam IV 750 MG in DEXTROSE 5% 100 ML 430 MG IVPB ×2 (08:07→20:12)
--- NOTE | 2020-05-10 09:35 | WPDGIPROGNO ---
Progress Note: A&P Additional Plan Patient found unresponsive admitted to the hospital with respiratory failure and now intubated. Unable to give any additional history. Nursing staff reports no obvious blood loss. Physical exam reveals patient to be on the ventilator. Poorly responsive off sedation. Lungs reveal a few rhonchi. Heart without nerve murmur. Abdomen bowel sounds present soft no organomegaly. Labs reveal hemoglobin 9.2 after transfusion. WBC 29 K. Impression 1. Respiratory failure on ventilator. 2. Encephalopathy. Patient poorly responsive. Neurological service is evaluating. 3. Profound anemia. Appears to be chronic. Occult blood loss identified. But no active bleeding at this time. Good response to transfusion. No plans for invasive testing until his status stabilizes more. Cover for stress ulceration this time. Four. Pneumonia. Five. Sepsis. Six. Rhabdomyolysis. Seven. Seizure. Subjective Date/time seen: 05/10/20 09:36 Objective Data Vital Signs Vital Signs: Vital Signs - 24 hr 05/09/20 11:20 05/09/20 12:00 05/09/20 12:35 Temperature 98.6 F Pulse Rate 98 96 95 Respiratory Rate 13 16 Blood Pressure 127/90 Pulse Oximetry 100 99 05/09/20 13:09 05/09/20 13:58 05/09/20 14:04 Temperature Pulse Rate 98 94 92 Respiratory Rate 20 13 Blood Pressure 135/85 Pulse Oximetry 100 100 05/09/20 16:00 05/09/20 16:35 05/09/20 17:40 Temperature 99.5 F Pulse Rate 102 H 97 96 Respiratory Rate 14 14 Blood Pressure 133/88 Pulse Oximetry 100 100 05/09/20 18:00 05/09/20 20:00 05/09/20 20:03 Temperature 99.9 F H Pulse Rate 99 101 H 100 Respiratory Rate 15 22 H Blood Pressure 138/87 133/95 H Pulse Oximetry 100 100 100 05/09/20 21:27 05/09/20 22:00 05/09/20 23:22 Temperature Pulse Rate 102 H 107 H 109 H Respiratory Rate 19 16 Blood Pressure 142/86 H Pulse Oximetry 98 99 05/10/20 00:00 05/10/20 00:49 05/10/20 01:17 DIP FILLER Temperature 99.7 F H Pulse Rate 107 H 110 H 99 Respiratory Rate 19 24 H 18 Blood Pressure 138/93 H Pulse Oximetry 99 05/10/20 02:00 05/10/20 02:05 05/10/20 02:36 Temperature Pulse Rate 99 102 H 99 Respiratory Rate 16 18 Blood Pressure 135/91 H Pulse Oximetry 100 100 05/10/20 04:00 05/10/20 04:48 05/10/20 05:05 Temperature 99.5 F Pulse Rate 99 100 100 Respiratory Rate 19 20 Blood Pressure 136/91 H Pulse Oximetry 97 100 05/10/20 06:00 05/10/20 06:38 05/10/20 08:00 Temperature 98.3 F Pulse Rate 107 H 110 H 105 H Respiratory Rate 37 H 19 19 Blood Pressure 145/90 H 144/92 H Pulse Oximetry 100 100 05/10/20 08:11 05/10/20 09:24 05/10/20 09:27 Temperature Pulse Rate 105 H 105 H 105 H Respiratory Rate 19 19 Blood Pressure Pulse Oximetry 100 Intake/Output Intake/Output: Intake & Output 05/07/20 05/08/20 05/09/20 05/10/20 23:59 23:59 23:59 22:59 Intake Total 4103.5 6363.0 2676 Output Total 1100 64787 800 Balance 3003.5 -9687.0 1876 Meds/Results Medications: Active Medications Generic Name Dose Route Start Last Admin Trade Name Freq PRN Reason Stop Dose Admin Dextrose 12.5 gm 05/08/20 14:35 Dextrose 50% 25 Gm/50 Ml Syringe IV PUSH PRN PRN Hypoglycemia Protocol Glucagon 1 mg 05/08/20 14:35 Glucagon For Inj 1 Mg Vial IM PRN PRN Hypoglycemia Protocol Glucose 15 gm 05/08/20 14:35 Glucose Oral Gel 15 Gm Of Glucse In 37.5 Gm Tube PO PRN PRN Hypoglycemia Protocol Piperacillin/Tazobactam/Dextrose 3.375 gm in 50 mls @ 100 mls/hr 05/08/20 18:00 05/10/20 05:27 Zosyn 3.375 Gm/D5w 50ml Pm IVPB Infused Q6H TARIK Infusion Dextrose 1,000 mls @ 100 mls/hr 05/08/20 14:35 Dextrose 5% 1,000 Ml IVPB PRN PRN Hypoglycemia Protocol Levetiracetam 750 mg/ Dextrose 107.5 mls @ 430 mls/hr 05/08/20 21:00 05/10/20 08:07 IVPB 430 mls/hr Q12HR TARIK Administration Propofo
--- NOTE | 2020-05-10 09:58 | PM.PNNEP ---
Progress Note: A&P Assessment and Plan (1) Electrolyte abnormality: Code(s): E87.8 - Other disorders of electrolyte and fluid balance, not elsewhere classified Status: Acute Assessment and Plan: 1. He had a triple acid-base defect. He has respiratory alkalosis. he has a process in his brain which may also be promoting respiratory alkalosis. His respiratory rate is 19 and his vent rate is lower than that so I think he is overbreathing the vent. His Metabolic acidosis is resolved. He has a metabolic alkalosis. This is improving. check a ua tomorrow for UpH. continue to replace K. 2. He has polyuria. U.O. is down. all th is just sounds like a got a big dose of lasix before coming in. lasix level pending (but wouldn't show up if bumex or torsemide). post obstructive diuresis could do this as well. sodium isn't getting better so probably not autocorrecting hyponatremia. Serum and urine osmolality pending. 3. The patient has hypokalemia. This might be due to nausea and vomiting or poor intake at home. continue to replace. he is probably total body sodium depleted 4. The patient has hyponatremia. This might be due to the Amitriptyline or due to the narcotics which can each cause SIADH. this is stable. 5. The patient has hypomagnesemia. This is likely nutritional. resolved. (2) Abnormal brain CT: Code(s): R90.89 - Other abnormal findings on diagnostic imaging of central nervous system Status: Acute Assessment and Plan: The patient has lesions inbrain and lung. ?toxo? ID consulted. (3) Rhabdomyolysis: Qualifiers: Rhabdomyolysis type: non-traumatic Qualified Code(s): M62.82 - Rhabdomyolysis Code(s): M62.82 - Rhabdomyolysis Status: Acute Assessment and Plan: CK improving (4) Elevated blood pressure reading: Code(s): R03.0 - Elevated blood-pressure reading, without diagnosis of hypertension Status: Acute Assessment and Plan: His blood pressure is running pretty well right now. (5) Acute respiratory failure: Qualifiers: Respiratory failure complication: hypoxia Qualified Code(s): J96.01 - Acute respiratory failure with hypoxia Code(s): J96.00 - Acute respiratory failure, unspecified whether with hypoxia or hypercapnia Status: Acute Assessment and Plan: He is on the ventilator in getting supportive care (6) Anemia: Qualifiers: Anemia type: unspecified type Qualified Code(s): D64.9 - Anemia, unspecified Code(s): D64.9 - Anemia, unspecified Status: Acute Assessment and Plan: His iron levels are low. Will supplement this after cultures come back negative. Check stool guaiacs. (7) Seizures: Code(s): R56.9 - Unspecified convulsions Status: Acute Assessment and Plan: Supportive care Additional Plan Discussed at length with Dr. North Subjective Date/time seen: 05/10/20 09:58 Interval history: Patient is on the ventilator. He is sedated. He cannot give a history. Review of Systems Review of Systems: ROS unobtainable: Yes unobtainable due to medical condition Exam Narrative: Exam Narrative: WDWN in NAD skin no rash head ncat lungs Course cor reg no rub abd BS+ nontender and soft ext no edema. Objective Data Vital Signs Vital Signs: Vital Signs - 24 hr 05/09/20 11:20 05/09/20 12:00 05/09/20 12:35 Temperature 37.0 C Pulse Rate 98 96 95 Respiratory Rate 13 16 Blood Pressure 127/90 Pulse Oximetry 100 99 05/09/20 13:09 05/09/20 13:58 05/09/20 14:04 Temperature Pulse Rate 98 94 92 Respiratory Rate 20 13 Blood Pressure 135/85 Pulse Oximetry 100 100 05/09/20 16:00 05/09/20 16:35 05/09/20 17:40 Temperature 37.5 C Pulse Rate 102 H 97 96 Respiratory Rate 14 14 Blood Pressure 133/88 Pulse Oximetry 100 100 05/09/20 18:00 05/09/20 20:00 05/09/20 20:03 Temperature 37.7
[2020-05-10 10:14] LABS: Vancomycin Trough 7.1 ug/mL (10.0-20.0)
[2020-05-10] MEDS: POTASSIUM CHLORIDE 20 MEQ PACKET (FOR LIQUID) 40 MEQ FEED TUBE (11:02)
[2020-05-10] MEDS: PROPOFOL IV EMULSION 100 ML 12.95 MG IV CONT ×2 (12:00→18:24)
[2020-05-10 12:02] LABS: Glucose Point of Care 128 (65-105)
--- NOTE | 2020-05-10 13:10 | WPDINTPN ---
Progress Note: A&P Assessment and Plan (1) Encephalopathy: Code(s): G93.40 - Encephalopathy, unspecified Status: Acute Assessment and Plan: likely multifactorial, metabolic, medication /drug related, hypoxic, could be related to mets as seen on CT scan - neurology following the patient - patient may require EEG (2) Electrolyte abnormality: Code(s): E87.8 - Other disorders of electrolyte and fluid balance, not elsewhere classified Status: Acute Assessment and Plan: Potassium being aggressively replaced along with phosphorus and magnesium - urine output is improved overnight, remains hyponatremic but stable - continue to replace potassium - CK levels trending down - appreciate Nephrology evaluation recommendations, will continue to hydrate patient at this time - Lasix level has been ordered and pending (3) Acute respiratory failure: Qualifiers: Respiratory failure complication: hypoxia Qualified Code(s): J96.01 - Acute respiratory failure with hypoxia Code(s): J96.00 - Acute respiratory failure, unspecified whether with hypoxia or hypercapnia Status: Acute Assessment and Plan: acute respiratory failure likely secondary to altered mental status, possible increased drug intake - patient was intubated on the field by EMS on 05/08/2020 - chest x-ray shows infiltrates likely aspiration - will continue Zosyn, vancomycin and ceftriaxone - sedated with propofol, maintain RASS of 0 to -2, - patient did not wake up during sedation vacation, will wean propofol to off evaluate mental status. (4) Seizures: Code(s): R56.9 - Unspecified convulsions Status: Acute Assessment and Plan: patient presented with seizures, unknown cause at this time. patient also febrile - continue Keppra - Ativan p.r.n. - neurology has been consulted - CT scan of the brain with contrast showed multiple intracranial masses concerning for metastatic disease although differential would include abscesses. - Discussed with neurology, agree with Sherri, lumbar puncture given patient has been febrile with a T-max of 102.3? - LP was supposed to be done by Interventional Radiology was the CT scan of the brain with contrast was done. Will see if LP he can be done today CT scan of the brain on 05/08/2020 : IMPRESSION: Asymmetrical-defined focal diminished attenuation in right periventricular area with impression upon the right frontal horn; recommend CT examination with IV contrast material or MR brain scan for further evaluation to exclude any possible malignant mass. Nonspecific diminished attenuation cerebral white matter, likely due to chronic small vessel ischemic changes (5) Anemia: Qualifiers: Anemia type: unspecified type Qualified Code(s): D64.9 - Anemia, unspecified Code(s): D64.9 - Anemia, unspecified Status: Acute Assessment and Plan: hemoglobin of 6.8, positive stool occult in the ER per physician. normocytic anemia - 2 units of packed RBCs transfused on 05/08/2020 - hemoglobin remains stable at 9.2 this morning - continue PPI IV q.12 hours - iron studies reflective of anemia of chronic disease. - appreciate GI evaluation recommendations. Stool for occult blood has been reordered per GI (6) Severe sepsis: Code(s): A41.9 - Sepsis, unspecified organism; R65.20 - Severe sepsis without septic shock Status: Acute Assessment and Plan: lactic acidosis, fevers, leukocytosis, acute respiratory failure, seizures - adequately fluid-resuscitated - repeat lactic acid levels are normal - will decrease IV fluids once tube feeds are started - continue antibiotics as above - blood culture obtained and pending - UA did not reveal UTI (7) Pneumonia: Qualifiers: Pneumonia type: due to unspecified organism Laterality: bilateral Lung location: unspecified part of lung Qualified Code(s): J18.9 - P
[2020-05-10] MEDS: SODIUM CHLORIDE 0.9% IV 1,000 ML 100 ML IV CONT ×2 (15:03→23:53)
[2020-05-10 16:04] LABS: Add Urine Microscopic? YES; Appearance Urine Clear (Clear); Bilirubin Urine Negative (Negative); Blood Urine 1+ (Negative); Color Urine Yellow (Yellow); Glucose Urine UA Negative (Negative); Ketones Urine Negative (Negative); Leukocyte Esterase Ur Negative LEU/UL (NEGATIVE); Mucus Urine Rare /lpf; Nitrate Urine Negative (Negative); Protein Urine 2+ mg/dL (Negative); RBC Urine 21-50 /hpf (0-2); Specific Grav Ur 1.023 (1.001-1.035); Squamous Epithelial Cell Urine Rare /hpf (Few); WBC Urine 0-3 /hpf (0-3)
[2020-05-10 16:07] LABS: Albumin Level 2.6 g/dL (3.5-5.1); Anion Gap 5 mmol/L (8-16); Blood Urea Nitrogen 9 mg/dL (9-20); Calcium 6.9 mg/dL (8.4-10.2); Carbon Dioxide 29 mmol/L (22-30); Chloride 93 mmol/L (98-107); Estimated CRCL calculation 221 ml/min; Estimated Glomerular Filt Rate > 60; Glucose 140 mg/dL (75-110); Phosphorus 1.8 mg/dL (2.5-4.5); Potassium 3.5 mmol/L (3.4-5.0); Sodium 127 mmol/L (137-145)
--- NOTE | 2020-05-10 16:45 | P.PNIM_ITS ---
Progress Note: A&P Assessment and Plan (1) Encephalopathy: Code(s): G93.40 - Encephalopathy, unspecified Status: Acute Assessment and Plan: * Due to pneumonia, sepsis, seizure, electrolyte abnormalities and brain lesions * Currently on Propofol so hard to assess * Needs MRI brain at some point (2) Severe sepsis: Code(s): A41.9 - Sepsis, unspecified organism; R65.20 - Severe sepsis without septic shock Status: Acute Assessment and Plan: * Due to pneumonia * Can not exclude PRINCIPAL ACCOUNTS CLERK infection * All cultures NGTD * WBC worse today. Fevers are better * Continue Zosyn, Rocephin and Vanco; Also on Acyclovir which could be stopped since unlikely HSV (3) Pneumonia: Qualifiers: Laterality: bilateral Lung location: unspecified part of lung Pneumonia type: due to unspecified organism Qualified Code(s): J18.9 - Pneumonia, unspecified organism Code(s): J18.9 - Pneumonia, unspecified organism Status: Acute Assessment and Plan: * Stable on MV * Cx NGTD * Continue IV abx as above (4) Acute respiratory failure: Qualifiers: Respiratory failure complication: hypoxia Qualified Code(s): J96.01 - Acute respiratory failure with hypoxia Code(s): J96.00 - Acute respiratory failure, unspecified whether with hypoxia or hypercapnia Status: Acute Assessment and Plan: * Due to pneumonia, encephalopathy * Continue mechanical ventilation (5) Abnormal brain CT: Code(s): R90.89 - Other abnormal findings on diagnostic imaging of central nervous system Status: Acute Assessment and Plan: * CT brain on admission showing asymmetrical-defined focal diminished attenuation in right periventricular area with impression upon the right frontal horn * CT brain with contrast 05/09: Multiple intracranial masses concerning for metastatic disease although differential would include abscesses. * neoplasm vs showering infectious emboli vs demyelination * check Echo, HIV * Abx as above. Could stop acyclovir since HSV unlikely. (6) Seizures: Code(s): R56.9 - Unspecified convulsions Status: Acute Assessment and Plan: * Etiology related to CT scan findings as mentioned above * Continue Keppra. Monitor for recurrence (7) Rhabdomyolysis: Qualifiers: Rhabdomyolysis type: non-traumatic Qualified Code(s): M62.82 - Rhabdomyolysis Code(s): M62.82 - Rhabdomyolysis Status: Acute Assessment and Plan: * Found down after unknown period * TCK 1167 on admission * Level trended down as expected to 298 today (8) Hypomagnesemia: Code(s): E83.42 - Hypomagnesemia Status: Acute Assessment and Plan: * Mag low at 1.2 of admission and was replaced * Mag 1.6 today. Will replace again given the low K+ * Phos also low at 1.8 suspect from refeeding syndrome; this was replaced already (9) Hypokalemia: Code(s): E87.6 - Hypokalemia Status: Acute Assessment and Plan: * Potasssium down to 2.1 on admission * Potassium replaced * K+ 2.9 this morning and replaced again * Repeat potassium 3.5 this evening; Followed (10) Hyponatremia: Code(s): E87.1 - Hypo-osmolality and hyponatremia Status: Acute Assessment and Plan: * Na 129 on admission. * Possibly due to poor intake/volume depletion but consider SIADH due to brain lesions * Repeat Na about the same at 127 toda
--- NOTE | 2020-05-10 16:45 | PM.IMPN ---
Progress Note: A&P Assessment and Plan (1) Encephalopathy: Code(s): G93.40 - Encephalopathy, unspecified Status: Acute Assessment and Plan: Due to pneumonia, sepsis, seizure, electrolyte abnormalities and brain lesions Currently on Propofol so hard to assess Needs MRI brain at some point (2) Severe sepsis: Code(s): A41.9 - Sepsis, unspecified organism; R65.20 - Severe sepsis without septic shock Status: Acute Assessment and Plan: Due to pneumonia Can not exclude MODEL MAKER APPRENTICE infection All cultures NGTD WBC worse today. Fevers are better Continue Zosyn, Rocephin and Vanco; Also on Acyclovir which could be stopped since unlikely HSV (3) Pneumonia: Qualifiers: Laterality: bilateral Lung location: unspecified part of lung Pneumonia type: due to unspecified organism Qualified Code(s): J18.9 - Pneumonia, unspecified organism Code(s): J18.9 - Pneumonia, unspecified organism Status: Acute Assessment and Plan: Stable on MV Cx NGTD Continue IV abx as above (4) Acute respiratory failure: Qualifiers: Respiratory failure complication: hypoxia Qualified Code(s): J96.01 - Acute respiratory failure with hypoxia Code(s): J96.00 - Acute respiratory failure, unspecified whether with hypoxia or hypercapnia Status: Acute Assessment and Plan: Due to pneumonia, encephalopathy Continue mechanical ventilation (5) Abnormal brain CT: Code(s): R90.89 - Other abnormal findings on diagnostic imaging of central nervous system Status: Acute Assessment and Plan: CT brain on admission showing asymmetrical-defined focal diminished attenuation in right periventricular area with impression upon the right frontal horn CT brain with contrast 05/09: Multiple intracranial masses concerning for metastatic disease although differential would include abscesses. neoplasm vs showering infectious emboli vs demyelination check Echo, HIV Abx as above. Could stop acyclovir since HSV unlikely. (6) Seizures: Code(s): R56.9 - Unspecified convulsions Status: Acute Assessment and Plan: Etiology related to CT scan findings as mentioned above Continue Keppra. Monitor for recurrence (7) Rhabdomyolysis: Qualifiers: Rhabdomyolysis type: non-traumatic Qualified Code(s): M62.82 - Rhabdomyolysis Code(s): M62.82 - Rhabdomyolysis Status: Acute Assessment and Plan: Found down after unknown period TCK 1167 on admission Level trended down as expected to 298 today (8) Hypomagnesemia: Code(s): E83.42 - Hypomagnesemia Status: Acute Assessment and Plan: Mag low at 1.2 of admission and was replaced Mag 1.6 today. Will replace again given the low K+ Phos also low at 1.8 suspect from refeeding syndrome; this was replaced already (9) Hypokalemia: Code(s): E87.6 - Hypokalemia Status: Acute Assessment and Plan: Potasssium down to 2.1 on admission Potassium replaced K+ 2.9 this morning and replaced again Repeat potassium 3.5 this evening; Followed (10) Hyponatremia: Code(s): E87.1 - Hypo-osmolality and hyponatremia Status: Acute Assessment and Plan: Na 129 on admission. Possibly due to poor intake/volume depletion but consider SIADH due to brain lesions Repeat Na about the same at 127 today. Check Urine Na (11) Hyperglycemia: Code(s): R73.9 - Hyperglycemia, unspecified Status: Acute Assessment and Plan: Likely due to severe sepsis A1c cancelled Glucose better controlled (12) Anemia: Qualifiers: Anemia type: unspecified type Qualified Code(s): D64.9 - Anemia, unspecified Code(s): D64.9 - Anemia, unspecified Status: Acute Assessment and Plan: Hgb 6.8 on admission and dropped to 5.2 on recheck. He received 2U PRBC on 05/08.
[2020-05-10 17:54] LABS: Glucose Point of Care 132 (65-105)
[2020-05-10] MEDS: MAGNESIUM SULF 1 GM/D5W 100 ML 1 GM/100 ML BAG IVPB (18:21)
[2020-05-11] VITALS (29 sets, daily range): BP systolic 110–148; BP diastolic 79–99; PULSE 88–129; RESP 16–52; TEMP 36.9–39; O2SAT 96–100; BMI 23.8
--- NOTE | 2020-05-11 | ECHO_ITS ---
Patient Info Name: Meet Peoples Age: 45 years : 1975 Gender: Male Ht: 75 in Wt: 190 lbs BSA: 2.14 m2 HR: 130 bpm BP: 145 / 99 mmHg Heart Rhythm: Tachycardia Technical Quality: Good Exam Date: 05/11/2020 10:38 AM Exam Location: [facility] Patient Status: Inpatient Admit Date: 05/08/2020 Staff Ordering Physician: Lester Regalado MD Chair Caner: Jan Blanco RDCS Attending Provider: Lester Regalado MD Exam Type: CA echo dop color flow w con Study Info Indications J96.01 - Acute respiratory failure with hypoxia Complete two-dimensional, color flow and Doppler transthoracic echocardiogram is performed with contrast to opacify the left ventricle and to improve the deliniation of the left ventricle endocardial borders. Contrast/Agitated Saline Contrast/Ag. Saline: Definity Amount: 3.00 ml Administered By: Meet Chew RN Existing IV Access: Yes History/Risk Factors Unresponsiveness; acute respiratory failure, HTN. Summary 1. Left ventricular chamber dimension is normal. 2. Left ventricular systolic function is normal, estimated at 55-60%. 3. There is mildly increased left ventricular wall thickness. 4. The left ventricular diastolic function is grade I diastolic dysfunction. 5. Left atrial chamber dimension is mildly enlarged. Left Ventricle Left ventricular chamber dimension is normal. Left ventricular systolic function is normal, estimated at 55-60%. There is mildly increased left ventricular wall thickness. The left ventricular diastolic function is grade I diastolic dysfunction. Right Ventricle Right ventricular chamber dimension is normal. Right ventricular systolic function is normal. Left Atria Left atrial chamber dimension is mildly enlarged. Right Atria Right atrial chamber dimension is normal. Atrial Septum Intact interatrial septum visualized by color flow imaging. Aortic Valve The aortic valve is trileaflet. There is mild aortic valve sclerosis. There is no aortic valve stenosis. There is trace aortic valve regurgitation. Pulmonic Valve The pulmonic valve is normal. There is no pulmonic valve stenosis. There is trace pulmonic regurgitation. Mitral Valve The mitral valve has normal leaflets. There is no mitral valve stenosis. There is trace mitral valve regurgitation. Tricuspid Valve The tricuspid valve leaflets are normal. There is no significant tricuspid valve stenosis. There is trace tricuspid valve regurgitation. Pericardium/Pleural The pericardium appears normal. There is no pericardial effusion. Inferior Vena Cava Normal inferior vena cava with >50% collapse upon inspiration consistent with normal right atrial pressure, 10 mmHg. Aorta The aortic root size at the sinus of Valsalva is normal. Left Ventricular Outflow Tract Name Value Normal LVOT 2D LVOT Diameter 1.98 cm LVOT Doppler LVOT Peak Gradient 5 mmHg LVOT Mean Gradient 2 mmHg LVOT VTI 14.82 cm LVO
[2020-05-11 00:12] LABS: Glucose Point of Care 138 (65-105)
[2020-05-11] MEDS: PROPOFOL IV EMULSION 100 ML 15.53 MG IV CONT ×2 (00:26→06:27)
[2020-05-11 02:49] LABS: IFOB Positive Control Positive; Immunochemical Fecal Occult Bl Negative (N)
[2020-05-11 04:46] LABS: Alveolar/Arterial O2 Gradient 82.6 mmHg; Base Excess ABG 3.8 mEq/l (+/-2.0); Carboxyhemoglobin 0.3 % THb (0-2.0); Fractional Inspired Oxygen 30 %; HCO3 ABG 26.9 mEq/l (22.0-26.0); Methemoglobin ABG 0.4 %THb (0-1.5); Oxygen Content ABG 15.8 %vol (16.0-22.0); Oxygen Saturation ABG 97.6 % (95.0-100.0); Oxyhemoglobin 96.4 % THb (90.0-100.0); PCO2 ABG 34.9 mmHg (35.0-45.0); PO2 ABG 90.3 mmHg (80.0-100.0); PO2 FiO2 Ratio Arterial Blood 3.01 %; Reduced Hemoglobin 2.9 %THb (0-5.0); Total Hemoglobin 11.6 g/dL (12.0-18.0); pH ABG 7.504 (7.350-7.450)
[2020-05-11 04:48] LABS: Device VENTILATOR; Modified Allen's Test Pass; Site Drawn LEFT RADIAL
[2020-05-11 04:49] LABS: Arterial Blood Gas PEEP 5 cmH2O; Arterial Blood Gas Tidal Volume 500 ml; Arterial Blood Gas Vent Mode CMV; Arterial Blood Gas Ventilator rate 14 /MIN
[2020-05-11] MEDS: CENTRAL LINE FLUSH 10 ML IV PUSH ×3 (05:26→21:48)
[2020-05-11] MEDS: ACYCLOVIR SODIUM IVPB 800 MG in DEXTROSE 5% IN WATER 250 ML 266 MG IVPB (05:26)
[2020-05-11 05:49] LABS: Hematocrit 30.1 % (42.0-52.0); Hemoglobin 9.9 g/dL (14.0-18.0); Mean Corpuscular HGB Conc 32.9 g/dl (32-36); Mean Corpuscular Hemoglobin 26.4 pg (26-34); Mean Corpuscular Volume 80.3 fl (80-100); Mean Platelet Volume 8.6 fl (7.4-10.4); Platelet Count Result 535 k/mm3 (150-375); Red Blood Count 3.75 M/mm3 (4.6-6.20); Red Cell Distribution Width 16.5 % (11.5-14.5); White Blood Count 27.2 K/mm3 (4.5-10.0)
[2020-05-11 06:09] LABS: Alanine Aminotransferase 20 U/L (4-50); Albumin Level 2.6 g/dL (3.5-5.1); Alkaline Phosphatase 99 U/L (38-126); Anion Gap 7 mmol/L (8-16); Aspartate Amino Transferase 32 U/L (17-59); Bilirubin,Total 0.4 mg/dL (0.2-1.3); Blood Urea Nitrogen 9 mg/dL (9-20); Carbon Dioxide 28 mmol/L (22-30); Chloride 94 mmol/L (98-107); Estimated CRCL calculation 221 ml/min; Estimated Glomerular Filt Rate > 60; Glucose 130 mg/dL (75-110); Magnesium 1.6 mg/dL (1.6-2.3); Phosphorus 2.8 mg/dL (2.5-4.5); Sodium 129 mmol/L (137-145)
[2020-05-11 06:20] LABS: CRP 20.7 mg/dL (<1.0)
[2020-05-11 06:20] LABS: Glucose Point of Care 100 (65-105)
[2020-05-11 06:44] LABS: HIV 1/2 Ab P24 Ag Result Negative (Negative)
--- NOTE | 2020-05-11 08:46 | PM.PNNEP ---
Progress Note: A&P Assessment and Plan (1) Electrolyte abnormality: Code(s): E87.8 - Other disorders of electrolyte and fluid balance, not elsewhere classified Status: Acute Assessment and Plan: 1. He had a triple acid-base defect, now double. He has respiratory alkalosis. he has a process in his brain which may also be promoting respiratory alkalosis. His Metabolic acidosis is resolved. He has a metabolic alkalosis. This is improving. Not dehydrated and K improved to some degree. urine pH is 7 so starting to filter his bicarb. 2. He has polyuria. U.O. is down. the patient made only 3 L urine yesterday. I agree with decreasing the ivfs. 3. The patient has hypokalemia. This might be due to nausea and vomiting or poor intake at home. continue to replace. he is probably total body sodium depleted 4. The patient has hyponatremia. This might be due to the Amitriptyline or due to the narcotics, each of which can each cause SIADH. this is stable. 5. The patient has hypomagnesemia. resolved. 6. Calcium is low. albumin low as well. ICa pending. (2) Abnormal brain CT: Code(s): R90.89 - Other abnormal findings on diagnostic imaging of central nervous system Status: Acute Assessment and Plan: The patient has lesions in brain and lung. ?toxo? ID consulted. (3) Rhabdomyolysis: Qualifiers: Rhabdomyolysis type: non-traumatic Qualified Code(s): M62.82 - Rhabdomyolysis Code(s): M62.82 - Rhabdomyolysis Status: Acute Assessment and Plan: CK improving (4) Elevated blood pressure reading: Code(s): R03.0 - Elevated blood-pressure reading, without diagnosis of hypertension Status: Acute Assessment and Plan: His blood pressure is running pretty well right now. (5) Acute respiratory failure: Qualifiers: Respiratory failure complication: hypoxia Qualified Code(s): J96.01 - Acute respiratory failure with hypoxia Code(s): J96.00 - Acute respiratory failure, unspecified whether with hypoxia or hypercapnia Status: Acute Assessment and Plan: He is on the ventilator in getting supportive care (6) Anemia: Qualifiers: Anemia type: unspecified type Qualified Code(s): D64.9 - Anemia, unspecified Code(s): D64.9 - Anemia, unspecified Status: Acute Assessment and Plan: His iron levels are low. Will supplement this after cultures come back negative. negative stool guaiacs. (7) Seizures: Code(s): R56.9 - Unspecified convulsions Status: Acute Assessment and Plan: Supportive care Additional Plan Discussed at length with Dr. Moore. Subjective Date/time seen: 05/11/20 08:46 Interval history: Patient is on the ventilator. He is sedated. He cannot give a history. looks comfortable on the vent. Review of Systems Review of Systems: ROS unobtainable: Yes unobtainable due to medical condition Exam Narrative: Exam Narrative: WDWN in NAD skin no rash head ncat lungs Course bialterally cor reg no rub abd BS+ nontender and soft ext no edema. Objective Data Vital Signs Vital Signs: Vital Signs - 24 hr 05/10/20 09:24 05/10/20 09:27 05/10/20 10:00 Temperature Pulse Rate 105 H 105 H 101 H Respiratory Rate 19 18 Blood Pressure 143/89 H Pulse Oximetry 100 99 05/10/20 11:06 05/10/20 12:00 05/10/20 14:00 Temperature 37.3 C Pulse Rate 101 H 101 H 99 Respiratory Rate 24 H 19 Blood Pressure 140/91 H 140/88 Pulse Oximetry 99 99 97 05/10/20 14:12 05/10/20 16:00 05/10/20 16:51 Temperature 37.1 C Pulse Rate 102 H 118 H 108 H Respiratory Rate 24 H Blood Pressure 154/96 H Pulse Oximetry 97 96 95 05/10/20 16:56 05/10/20 18:00 05/10/20 18:24 Temperature Pulse Rate 109 H 108 H 108 H Respiratory Rate 27 H 27 H 27 H Blood Pressure 147/97 H Pulse Oximetry 94 05/10/20 20:00 05/10/20 20:16 05/10/20 20
[2020-05-11] MEDS: levETIRAcetam IV 750 MG in DEXTROSE 5% 100 ML 430 MG IVPB (09:13)
[2020-05-11] MEDS: PANTOPRAZOLE SODIUM IV 40 MG VIAL IV PUSH ×2 (09:14→21:47)
[2020-05-11] MEDS: MAGNESIUM SULF 2 GM/WATER 50ML 2 GM/50 ML BAG IVPB (09:24)
[2020-05-11] MEDS: POTASSIUM CHLORIDE 20 MEQ PACKET (FOR LIQUID) 40 MEQ FEED TUBE ×2 (09:24→15:08)
--- NOTE | 2020-05-11 09:59 | WPDGIPROGNO ---
Progress Note: A&P Additional Plan Patient remains on the ventilator. Unresponsive. Physical exam reveals him to be on the ventilator. Lungs are clear. Abdomen is soft and nontender no masses. Stool is reported negative for blood. Impression 1. Profound anemia. No obvious signs of GI blood loss. Appears to be a chronic anemia iron indices consistent with anemia of chronic disease. 2. Electrolyte imbalance. Renal service following. 3. Encephalopathy. Neurology service following etiology somewhat unclear at this point. 4. Sepsis. Pneumonia evident. Subjective Date/time seen: 05/11/20 09:59 Objective Data Vital Signs Vital Signs: Vital Signs - 24 hr 05/10/20 10:00 05/10/20 11:06 05/10/20 12:00 Temperature 99.2 F Pulse Rate 101 H 101 H 101 H Respiratory Rate 18 24 H Blood Pressure 143/89 H 140/91 H Pulse Oximetry 99 99 99 05/10/20 14:00 05/10/20 14:12 05/10/20 16:00 Temperature 98.7 F Pulse Rate 99 102 H 118 H Respiratory Rate 19 24 H Blood Pressure 140/88 154/96 H Pulse Oximetry 97 97 96 05/10/20 16:51 05/10/20 16:56 05/10/20 18:00 Temperature Pulse Rate 108 H 109 H 108 H Respiratory Rate 27 H 27 H Blood Pressure 147/97 H Pulse Oximetry 95 94 05/10/20 18:24 05/10/20 20:00 05/10/20 20:16 Temperature 100.2 F H Pulse Rate 108 H 108 H 112 H Respiratory Rate 27 H 28 H 22 H Blood Pressure 150/96 H Pulse Oximetry 98 05/10/20 20:18 05/10/20 22:00 05/10/20 23:19 Temperature Pulse Rate 108 H 116 H 113 H Respiratory Rate 18 Blood Pressure 151/95 H Pulse Oximetry 96 99 98 05/10/20 23:46 05/11/20 00:00 05/11/20 00:26 Temperature 100.9 F H 100.9 F H 100.2 F H Pulse Rate 108 H 112 H Respiratory Rate 28 H 22 H Blood Pressure 148/92 H Pulse Oximetry 98 05/11/20 02:00 05/11/20 02:44 05/11/20 04:00 Temperature 99.8 F H Pulse Rate 96 97 99 Respiratory Rate 18 18 Blood Pressure 141/91 H 139/92 H Pulse Oximetry 98 99 98 05/11/20 04:18 05/11/20 06:00 05/11/20 06:27 Temperature Pulse Rate 97 111 H 118 H Respiratory Rate 18 21 H Blood Pressure 147/90 H Pulse Oximetry 100 100 05/11/20 08:11 Temperature Pulse Rate 115 H Respiratory Rate Blood Pressure Pulse Oximetry 100 Intake/Output Intake/Output: Intake & Output 05/09/20 05/10/20 05/10/20 05/11/20 00:59 00:59 23:59 23:59 Intake Total 1432 Output Total 2500 Balance -1068 Meds/Results Medications: Active Medications Generic Name Dose Route Start Last Admin Trade Name Freq PRN Reason Stop Dose Admin Dextrose 12.5 gm 05/08/20 14:35 Dextrose 50% 25 Gm/50 Ml Syringe IV PUSH PRN PRN Hypoglycemia Protocol Glucagon 1 mg 05/08/20 14:35 Glucagon For Inj 1 Mg Vial IM PRN PRN Hypoglycemia Protocol Glucose 15 gm 05/08/20 14:35 Glucose Oral Gel 15 Gm Of Glucse In 37.5 Gm Tube PO PRN PRN Hypoglycemia Protocol Piperacillin/Tazobactam/Dextrose 3.375 gm in 50 mls @ 100 mls/hr 05/08/20 18:00 05/11/20 06:18 Zosyn 3.375 Gm/D5w 50ml Pm IVPB Infused Q6H TARIK Infusion Dextrose 1,000 mls @ 100 mls/hr 05/08/20 14:35 Dextrose 5% 1,000 Ml IVPB PRN PRN Hypoglycemia Protocol Levetiracetam 750 mg/ Dextrose 107.5 mls @ 430 mls/hr 05/08/20 21:00 05/11/20 09:13 IVPB 430 mls/hr Q12HR TARIK Administration Propofol 100 mls @ 15.534 mls/hr 05/08/20 14:10 05/11/20 06:27 Diprivan IV CONT 30 mcg/kg/min .Q6H27M TARIK 15.53 mls/hr Administration Protocol 30 MCG/KG/MIN Sodium Chloride 1,000 mls @ 50 mls/hr 05/08/20 18:10 05/10/20 23:53 Normal Saline Iv IV CONT 100 mls/hr .Q20H TARIK Administration Acyclovir Sodium 800 mg/ 266 mls @ 266 mls/hr 05/08/20 22:00 05/11/20 06:18 Dextrose IVPB Infused Q8HR TARIK Infusion Ceftriaxone Sodium 2 gm in 100 mls @ 200 mls/hr 05/10/20 08:00 05/11/20 09:15 Rocephin 2 Gm/D5w 100 Ml IVPB
[2020-05-11] MEDS: PERFLUTREN LIPID MICROSPHERES 1.5 ML VIAL DILUTED TO 10 ML TOTAL VOLUME (10:23)
--- NOTE | 2020-05-11 10:47 | WPDINFPN2 ---
Progress Note: A&P Assessment and Plan (1) Leukocytosis: Code(s): D72.829 - Elevated white blood cell count, unspecified Status: Acute Assessment and Plan: 1. Leukocytosis, ? S aureus CAP vs other 2. Polysubstance abuse REC Ctx and Vanc and f/u Subjective Date/time seen: 05/11/20 10:47 Objective Data Vital Signs Vital Signs: Vital Signs - 24 hr 05/10/20 11:06 05/10/20 12:00 05/10/20 14:00 Temperature 37.3 C Pulse Rate 101 H 101 H 99 Respiratory Rate 24 H 19 Blood Pressure 140/91 H 140/88 Pulse Oximetry 99 99 97 05/10/20 14:12 05/10/20 16:00 05/10/20 16:51 Temperature 37.1 C Pulse Rate 102 H 118 H 108 H Respiratory Rate 24 H Blood Pressure 154/96 H Pulse Oximetry 97 96 95 05/10/20 16:56 05/10/20 18:00 05/10/20 18:24 Temperature Pulse Rate 109 H 108 H 108 H Respiratory Rate 27 H 27 H 27 H Blood Pressure 147/97 H Pulse Oximetry 94 05/10/20 20:00 05/10/20 20:16 05/10/20 20:18 Temperature 37.9 C H Pulse Rate 108 H 112 H 108 H Respiratory Rate 28 H 22 H Blood Pressure 150/96 H Pulse Oximetry 98 96 05/10/20 22:00 05/10/20 23:19 05/10/20 23:46 Temperature 38.3 C H Pulse Rate 116 H 113 H Respiratory Rate 18 Blood Pressure 151/95 H Pulse Oximetry 99 98 05/11/20 00:00 05/11/20 00:26 05/11/20 02:00 Temperature 38.3 C H 37.9 C H Pulse Rate 108 H 112 H 96 Respiratory Rate 28 H 22 H 18 Blood Pressure 148/92 H 141/91 H Pulse Oximetry 98 98 05/11/20 02:44 05/11/20 04:00 05/11/20 04:18 Temperature 37.7 C H Pulse Rate 97 99 97 Respiratory Rate 18 Blood Pressure 139/92 H Pulse Oximetry 99 98 100 05/11/20 06:00 05/11/20 06:27 05/11/20 08:00 Temperature 38.3 C H Pulse Rate 111 H 118 H 125 H Respiratory Rate 18 21 H 27 H Blood Pressure 147/90 H 148/92 H Pulse Oximetry 100 100 05/11/20 08:11 05/11/20 10:00 Temperature 37.2 C Pulse Rate 115 H 125 H Respiratory Rate 27 H Blood Pressure 140/94 H Pulse Oximetry 100 100 Intake/Output Intake/Output: Intake & Output 05/09/20 05/10/20 05/10/20 05/11/20 00:59 00:59 23:59 23:59 Intake Total 1539.5 Output Total 2500 Balance -960.5 Meds/Results Medications: Active Medications Generic Name Dose Route Start Last Admin Trade Name Freq PRN Reason Stop Dose Admin Dextrose 12.5 gm 05/08/20 14:35 Dextrose 50% 25 Gm/50 Ml Syringe IV PUSH PRN PRN Hypoglycemia Protocol Glucagon 1 mg 05/08/20 14:35 Glucagon For Inj 1 Mg Vial IM PRN PRN Hypoglycemia Protocol Glucose 15 gm 05/08/20 14:35 Glucose Oral Gel 15 Gm Of Glucse In 37.5 Gm Tube PO PRN PRN Hypoglycemia Protocol Piperacillin/Tazobactam/Dextrose 3.375 gm in 50 mls @ 100 mls/hr 05/08/20 18:00 05/11/20 06:18 Zosyn 3.375 Gm/D5w 50ml Pm IVPB Infused Q6H TARIK Infusion Dextrose 1,000 mls @ 100 mls/hr 05/08/20 14:35 Dextrose 5% 1,000 Ml IVPB PRN PRN Hypoglycemia Protocol Levetiracetam 750 mg/ Dextrose 107.5 mls @ 430 mls/hr 05/08/20 21:00 05/11/20 09:30 IVPB Infused Q12HR TARIK Infusion Propofol 100 mls @ 15.534 mls/hr 05/08/20 14:10 05/11/20 06:27 Diprivan IV CONT 30 mcg/kg/min .Q6H27M TARIK 15.53 mls/hr Administration Protocol 30 MCG/KG/MIN Sodium Chloride 1,000 mls @ 50 mls/hr 05/08/20 18:10 05/10/20 23:53 Normal Saline Iv IV CONT 100 mls/hr .Q20H TARIK Administration Acyclovir Sodium 800 mg/ 266 mls @ 266 mls/hr 05/08/20 22:00 05/11/20 06:18 Dextrose IVPB Infused Q8HR TARIK Infusion Ceftriaxone Sodium 2 gm in 100 mls @ 200 mls/hr 05/10/20 08:00 05/11/20 09:15 Rocephin 2 Gm/D5w 100 Ml IVPB Infused Q12H TARIK Infusion Vancomycin HCl 2,000 mg in 500 mls @ 250 mls/hr 05/10/20 10:00 05/11/20 09:14 Vancomycin 2,000 Mg/D5w 500 Ml IVPB 250 mls/hr Q12H TARIK Administration Acetaminophen 1,000 mg in 100 mls @ 400 mls/hr 05/10/20 21:53 05/11/20 0
--- NOTE | 2020-05-11 12:10 | CONS_ITS ---
DATE OF CONSULTATION: 05/11/2020 REASON FOR CONSULTATION: Leukocytosis. HISTORY OF PRESENT ILLNESS: A 45-year-old male who cannot provide any history as he is intubated and sedated. He was admitted through the emergency room on May 08 with seizure that was witnessed by EMT. His father had found him lying on the floor unresponsive. He had fever and leukocytosis. He has been given acyclovir, vancomycin, ceftriaxone, and piperacillin-tazobactam at various times. He was intubated for airway protection. He has not required any operative intervention. The patient has not had lumbar puncture performed. His hospital course has been complicated by anemia, ongoing leukocytosis, elevated CPK, multiple acid-base disturbances, hyponatremia, and consultation requested. ALLERGIES: NONE KNOWN. PRESENT MEDICATIONS: List reviewed. No immunosuppressants. Home medication list reviewed as well. HABITS: Marijuana, tobacco. Drug screen as below. FAMILY HISTORY: Not pertinent to his present illness. PAST MEDICAL HISTORY: Chronic back pain with opiate use. No chronic medical illnesses. SOCIAL HISTORY: He is single. Resides locally. REVIEW OF SYSTEMS: 14-point review attempted, not obtainable from the patient due to intubated status. PHYSICAL EXAMINATION: GENERAL: Middle-aged male who appears his actual age, in no acute distress. VITAL SIGNS: His temperature shortly after arrival up to 39.1 core and in the last 24 hours T-max 38.3 core. SKIN: No rashes, has a few scattered ecchymoses. He has what appears to be a needle injury over the dorsum of the left foot, although other skin injuries could mimic. NODES: No axillary or cervical adenopathy. EENT: No icterus. Conjunctivae are normal. He has an orogastric tube and oral endotracheal tube, which compromise exam. Otherwise, the mouth is normal. Teeth in good repair. No paranasal sinus erythema, edema or tenderness. NECK: Without meningismus, mass or asymmetry. LUNGS: Coarse breath sounds, vesicular, clear to percussion. CARDIAC: Tachycardic 125, 140/94, 27. No murmurs or gallops. Pulses are 2+ and equal. ABDOMEN: Scaphoid, nontender. No organomegaly. No masses. : Gonzalez catheter draining clear yellow urine. No penile lesions. EXTREMITIES: No clubbing, cyanosis, or edema. Well perfused. Normal muscle tone. LABORATORY DATA: Drug screen positive for cannabinoids, benzodiazepines, opiates. Coronavirus assay and HIV screen both nonreactive. His urinalysis on 2 occasions with hematuria. No other evidence of infection. Initially, his sodium was 129. He has had multiple electrolyte panels since then which show persistent hyponatremia. He also has hypokalemia, low chloride, glucose 130. Accu-Cheks variable, generally normal. He has low calcium at 7. His albumin is also low at 2.6. Blood gases 7.50, 35, 90, 27, 98% on the noted ventilator settings. Prothrombin time prolonged at 18.2. His white blood cell count initially 19.9, now 27.2, down from 29.6, hemoglobin 9.9, platelets of 535, no differential done today; earlier showed a moderate left shift. Sputum with Staph aureus, mixed devang on Gram stain. Blood cultures 3 sets total, no growth so far. RADIOLOGY: I personally reviewed his chest x-rays. He has right mid and lower lung field infiltrate. I also reviewed the radiologist's reading of chest, abdomen, and pelvic CT, reading indicates airspace opacities, suprahilar soft tissue density, adenopathy, colon wall thickening. Brain CT, intracranial masses as described. Echocardiogram just performed. No results as yet. ASSESSMENT: 1. Leukocytosis, possibly infectious in nature given his fever and other findings. Considerations include Staph aureus pneumonia, Methicillin-resistant S
[2020-05-11] MEDS: PROPOFOL IV EMULSION 100 ML 18.12 MG IV CONT ×2 (12:25→18:30)
[2020-05-11 12:45] LABS: INR 1.2; Prothrombin Time 16.1 Seconds (11.1-14.7)
--- NOTE | 2020-05-11 12:58 | WPDINTPN ---
Progress Note: A&P Assessment and Plan (1) Severe sepsis: Code(s): A41.9 - Sepsis, unspecified organism; R65.20 - Severe sepsis without septic shock Status: Acute Assessment and Plan: lactic acidosis, fevers, leukocytosis, acute respiratory failure, seizures - adequately fluid-resuscitated - repeat lactic acid levels are normal - will decrease IV fluids as tube feeds are started - continue antibiotics as above - blood culture obtained and pending - UA did not reveal UTI - Echocardiogram done today did not showed any vegetations (2) Encephalopathy: Code(s): G93.40 - Encephalopathy, unspecified Status: Acute Assessment and Plan: likely multifactorial, metabolic, medication /drug related, hypoxic and multiple intracranial masses - these could be multiple small abscesses from Staph aureus infection although his blood cultures have been negative. - neurology following the patient - EEG ordered - unable to get MRI while patient is on ventilator at this time - LP is ordered and pending - continue empiric antibiotics (3) Electrolyte abnormality: Code(s): E87.8 - Other disorders of electrolyte and fluid balance, not elsewhere classified Status: Acute Assessment and Plan: Potassium being aggressively replaced along with magnesium. false in normal range today - urine output is improved was still high. patient remains hyponatremic but stable - continue to replace potassium - CK levels trending down - discussed with Nephrology. I will decrease IV fluids and monitor urine output (4) Acute respiratory failure: Qualifiers: Respiratory failure complication: hypoxia Qualified Code(s): J96.01 - Acute respiratory failure with hypoxia Code(s): J96.00 - Acute respiratory failure, unspecified whether with hypoxia or hypercapnia Status: Acute Assessment and Plan: acute respiratory failure likely secondary to altered mental status, possible increased drug intake, pneumonia - patient was intubated on the field by EMS on 05/08/2020 - chest x-ray and ABG reviewed - decrease tidal volume to 400 mL - will continue Zosyn, vancomycin and ceftriaxone - sedated with propofol, became tachypneic and tachycardic on decreasing sedation but did not follow any commands (5) Seizures: Code(s): R56.9 - Unspecified convulsions Status: Acute Assessment and Plan: patient presented with seizures, unknown cause at this time. patient also febrile - continue Keppra - Ativan p.r.n. - neurology has been consulted - EEG ordered - CT scan of the brain with contrast showed multiple intracranial masses concerning for metastatic disease vs abscesses. - unable to obtain MRI at this hospital while patient is on a ventilator - continue propofol and Keppra, - LP has been ordered and is pending. Discussed with Dr. Garsia in radiology and he requested INR which was checked and was 1.2. CT scan of the brain on 05/08/2020 : IMPRESSION: Asymmetrical-defined focal diminished attenuation in right periventricular area with impression upon the right frontal horn; recommend CT examination with IV contrast material or MR brain scan for further evaluation to exclude any possible malignant mass. Nonspecific diminished attenuation cerebral white matter, likely due to chronic small vessel ischemic changes (6) Anemia: Qualifiers: Anemia type: unspecified type Qualified Code(s): D64.9 - Anemia, unspecified Code(s): D64.9 - Anemia, unspecified Status: Acute Assessment and Plan: hemoglobin of 6.8, positive stool occult in the ER per physician. normocytic anemia - 2 units of packed RBCs transfused on 05/08/2020 - hemoglobin remains stable - continue PPI IV q.12 hours - iron studies reflective of anemia of chronic disease. - appreciate GI evaluation recommendations. Stool for occult blood was negative (7) Pneumoni
--- NOTE | 2020-05-11 14:45 | P.PNIM_ITS ---
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 Persistent fevers * Abx adjusted; Rocephin decreased 1gm daily and Vanco continued; Acyclovir and Zosyn stopped (3) Pneumonia: Qualifiers: Laterality: bilateral Lung location: unspecified part of lung Pneumonia type: due to unspecified organism Qualified Code(s): J18.9 - Pneumonia, unspecified organism Code(s): J18.9 - Pneumonia, unspecified organism Status: Acute Assessment and Plan: * CT chest 05/09 showing RLL airspace opacities with areas suggestive of pulmonary abscess or necrotizing pneumonia and a right suprahilar soft tissue density, mass versus lymphadenopathy. Right hilar, mediastinal, and supraclavicular lymphadenopathy also noted. * BCx NGTD; Sputum growing Staph aureus * Continue IV abx as above * Send sputum for cytology (4) Acute respiratory failure: Qualifiers: Respiratory failure complication: hypoxia Qualified Code(s): J96.01 - Acute respiratory failure with hypoxia Code(s): J96.00 - Acute respiratory failure, unspecified whether with hypoxia or hypercapnia Status: Acute Assessment and Plan: * Due to pneumonia, encephalopathy * Continue mechanical ventilation (5) Abnormal brain CT: Code(s): R90.89 - Other abnormal findings on diagnostic imaging of central nervous system Status: Acute Assessment and Plan: * CT brain on admission showing asymmetrical-defined focal diminished attenuation in right periventricular area with impression upon the right f rontal horn * CT brain with contrast 05/09: Multiple intracranial masses concerning for metastatic disease although differential would include abscesses. * neoplasm vs showering infectious emboli vs demyelination * HIV negative; Echo showing no obvious vegetations * LP performed but results pending. * Needs MRI * Abx as above. (6) Seizures: Code(s): R56.9 - Unspecified convulsions Status: Acute Assessment and Plan: * Etiology related to CT scan findings as mentioned above * May be having subclinical siezures. * Continue Keppra. Monitor for recurrence * EEG ordered (7) Rhabdomyolysis: Qualifiers: Rhabdomyolysis type: non-traumatic Qualified Code(s): M62.82 - Rhabdomyolysis Code(s): M62.82 - Rhabdomyolysis Status: Acute Assessment and Plan: * Found down after unknown period * TCK 1167 on admission * Level trended down to 298 (8) Hypomagnesemia: Code(s): E83.42 - Hypomagnesemia Status: Acute Assessment and Plan: * Mag low at 1.2 of admission and was replaced * Mag 1.6 again today. Will replace again * Phos normal at 2.8 now (9) Hypokalemia: Code(s): E87.6 - Hypokalemia Status: Acute Assessment and Plan: * Potasssium low at 2.1 on admission * Potassium replaced * K+ 3.0 this morning and replaced again * Continue to follow
--- NOTE | 2020-05-11 14:45 | PM.IMPN ---
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 Persistent fevers Abx adjusted; Rocephin decreased 1gm daily and Vanco continued; Acyclovir and Zosyn stopped (3) Pneumonia: Qualifiers: Laterality: bilateral Lung location: unspecified part of lung Pneumonia type: due to unspecified organism Qualified Code(s): J18.9 - Pneumonia, unspecified organism Code(s): J18.9 - Pneumonia, unspecified organism Status: Acute Assessment and Plan: CT chest 05/09 showing RLL airspace opacities with areas suggestive of pulmonary abscess or necrotizing pneumonia and a right suprahilar soft tissue density, mass versus lymphadenopathy. Right hilar, mediastinal, and supraclavicular lymphadenopathy also noted. BCx NGTD; Sputum growing Staph aureus Continue IV abx as above Send sputum for cytology (4) Acute respiratory failure: Qualifiers: Respiratory failure complication: hypoxia Qualified Code(s): J96.01 - Acute respiratory failure with hypoxia Code(s): J96.00 - Acute respiratory failure, unspecified whether with hypoxia or hypercapnia Status: Acute Assessment and Plan: Due to pneumonia, encephalopathy Continue mechanical ventilation (5) Abnormal brain CT: Code(s): R90.89 - Other abnormal findings on diagnostic imaging of central nervous system Status: Acute Assessment and Plan: CT brain on admission showing asymmetrical-defined focal diminished attenuation in right periventricular area with impression upon the right frontal horn CT brain with contrast 05/09: Multiple intracranial masses concerning for metastatic disease although differential would include abscesses. neoplasm vs showering infectious emboli vs demyelination HIV negative; Echo showing no obvious vegetations LP performed but results pending. Needs MRI Abx as above. (6) Seizures: Code(s): R56.9 - Unspecified convulsions Status: Acute Assessment and Plan: Etiology related to CT scan findings as mentioned above May be having subclinical siezures. Continue Keppra. Monitor for recurrence EEG ordered (7) Rhabdomyolysis: Qualifiers: Rhabdomyolysis type: non-traumatic Qualified Code(s): M62.82 - Rhabdomyolysis Code(s): M62.82 - Rhabdomyolysis Status: Acute Assessment and Plan: Found down after unknown period TCK 1167 on admission Level trended down to 298 (8) Hypomagnesemia: Code(s): E83.42 - Hypomagnesemia Status: Acute Assessment and Plan: Mag low at 1.2 of admission and was replaced Mag 1.6 again today. Will replace again Phos normal at 2.8 now (9) Hypokalemia: Code(s): E87.6 - Hypokalemia Status: Acute Assessment and Plan: Potasssium low at 2.1 on admission Potassium replaced K+ 3.0 this morning and replaced again Continue to follow (10) Hyponatremia: Code(s): E87.1 - Hypo-osmolality and hyponatremia Status: Acute Assessment and Plan: Na 129 on admission. Possibly due to poor intake/volume depletion Repeat Na 129 today. Urine Na 23 (11) Hyperglycemia: Code(s): R73.9 - Hyperglycemia, unspecified Status: Acute Assessment and Plan: Likely due to severe sepsis. A1c 5.0. Continue to monitor. (12) Anemia: Qualifiers: Anemia type: unspecified
[2020-05-11] MEDS: SODIUM CHLORIDE 0.9% IV 1,000 ML 50 ML IV CONT (15:08)
[2020-05-11 15:40] LABS: Glucose CSF < 30 mg/dL (40-70)
[2020-05-11 16:21] LABS: CSF source CSF
[2020-05-11 16:22] LABS: Appearance CSF Cloudy (Clear); Color CSF Colorless (Colorless); Lymphocytes CSF 10 % (40-80); Monocytes CSF 12 % (15-45); Neutrophils CSF 78 % (0-6); Nucleated Cell CSF 3535 /uL (0-5); Red Blood Cell CSF 283 (0-2)
[2020-05-11 17:34] LABS: Glucose Point of Care 124 (65-105)
[2020-05-11 17:38] LABS: Glucose Point of Care 150 (65-105)
[2020-05-11 18:46] LABS: Total Protein CSF 415 mg/dL (12-60)
[2020-05-11] MEDS: levETIRAcetam IV 750 MG in DEXTROSE 5% 100 ML 400 MG IVPB (21:52)
[2020-05-11] MEDS: PROPOFOL IV EMULSION 100 ML 20.71 MG IV CONT (22:21)
[2020-05-11 22:47] LABS: Vancomycin Trough 9.2 ug/mL (10.0-20.0)
[2020-05-12] VITALS (18 sets, daily range): BP systolic 116–153; BP diastolic 46–102; PULSE 94–124; RESP 14–30; TEMP 37.5–39.2; O2SAT 97–100
[2020-05-12 00:09] LABS: Glucose Point of Care 121 (65-105)
[2020-05-12 05:03] LABS: Alveolar/Arterial O2 Gradient 85.2 mmHg; Base Excess ABG 0.8 mEq/l (+/-2.0); Carboxyhemoglobin 0.3 % THb (0-2.0); Fractional Inspired Oxygen 30 %; Methemoglobin ABG 0.3 %THb (0-1.5); Oxygen Saturation ABG 98.3 % (95.0-100.0); Oxyhemoglobin 96.8 % THb (90.0-100.0); PCO2 ABG 25.2 mmHg (35.0-45.0); PO2 ABG 99.1 mmHg (80.0-100.0); Reduced Hemoglobin 2.6 %THb (0-5.0); Total Hemoglobin 10.9 g/dL (12.0-18.0)
[2020-05-12 05:05] LABS: Device VENTILATOR; Modified Allen's Test Pass; Site Drawn LEFT RADIAL; pH ABG 7.559 (7.350-7.450)
[2020-05-12 05:06] LABS: Arterial Blood Gas PEEP 5 cmH2O; Arterial Blood Gas Vent Mode CMV; Arterial Blood Gas Ventilator rate 14 /MIN
[2020-05-12 05:07] LABS: Arterial Blood Gas Tidal Volume 400 ml
[2020-05-12] MEDS: CENTRAL LINE FLUSH 10 ML IV PUSH ×2 (06:11→14:07)
[2020-05-12 06:22] LABS: Glucose Point of Care 114 (65-105)
[2020-05-12 06:23] LABS: Alanine Aminotransferase 39 U/L (4-50); Albumin Level 2.6 g/dL (3.5-5.1); Alkaline Phosphatase 114 U/L (38-126); Anion Gap 7 mmol/L (8-16); Aspartate Amino Transferase 85 U/L (17-59); Bilirubin,Total 0.2 mg/dL (0.2-1.3); Blood Urea Nitrogen 16 mg/dL (9-20); Calcium 7.2 mg/dL (8.4-10.2); Carbon Dioxide 27 mmol/L (22-30); Chloride 93 mmol/L (98-107); Estimated CRCL calculation 182 ml/min; Estimated Glomerular Filt Rate > 60; Glucose 123 mg/dL (75-110); Lactic Acid Reflex 0.8 mmol/L (0.7-2.1); Magnesium 1.7 mg/dL (1.6-2.3); Phosphorus 2.8 mg/dL (2.5-4.5); Potassium 3.3 mmol/L (3.4-5.0); Sodium 127 mmol/L (137-145)
[2020-05-12] MEDS: PROPOFOL IV EMULSION 100 ML 23.3 MG IV CONT (07:26)
[2020-05-12] MEDS: MAGNESIUM SULF 2 GM/WATER 50ML 2 GM/50 ML BAG IVPB (08:46)
[2020-05-12] MEDS: POTASSIUM CHLORIDE 20 MEQ PACKET (FOR LIQUID) 40 MEQ FEED TUBE ×2 (08:46→14:07)
[2020-05-12] MEDS: PANTOPRAZOLE SODIUM IV 40 MG VIAL IV PUSH (08:47)
[2020-05-12] MEDS: levETIRAcetam IV 750 MG in DEXTROSE 5% 100 ML 400 MG IVPB (08:47)
[2020-05-12 09:16] LABS: Basophils Absolute Auto 0.1 K/mm3 (0.0-0.1); Basophils Percent Auto 0.3 % (0.2-1.2); Eosinophils Percent Auto 0.1 % (0-4.4); Hematocrit 30.4 % (42.0-52.0); Immature Granulocyte Absolute 0.33 K/mm3 (0.00-0.031); Immature Granulocyte Percent A 1.3 % (0-0.5); Lymphocytes Absolute Auto 2.76 K/mm3 (0.9-3.2); Lymphocytes Percent Auto 11.1 % (18.3-44.2); Mean Corpuscular HGB Conc 32.9 g/dl (32-36); Mean Corpuscular Hemoglobin 26.1 pg (26-34); Mean Corpuscular Volume 79.4 fl (80-100); Mean Platelet Volume 8.5 fl (7.4-10.4); Monocytes Absolute Auto 1.5 K/mm3 (0.1-0.6); Monocytes Percent Auto 5.8 % (2.6-8.5); Neutrophils Absolute Auto 20.3 K/mm3 (1.3-6.7); Neutrophils Percent Auto 81.4 % (45.5-73.1); Platelet Count Result 594 k/mm3 (150-375); Red Blood Count 3.83 M/mm3 (4.6-6.20)
--- NOTE | 2020-05-12 09:27 | WPDNEUROLOGY ---
Neurology EEG Report General Information Date of Study: 05/12/20 TEST eeg DIAGNOSIS seizures CONDITION OF RECORDING awake drowsy an sleep EEG NUMBER [id number] CLINICAL HISTORY Patient is on vent, sedated and unresponsive. propofol was stopped at the start of this tracing. EEG DESCRIPTION basic rhythm consists of low to medium voltage 5 to 7 hertz per second theta admixed with intermittent 3 to 4 hertz per delta activity and Super imposed by low to medium voltage 15 to 18 hertz per second betaactivity. bilateral symmetrical sleep activity seen during brief periods of sleep. non paroxysmal, nonfocal, nonlateralizing IMPRESSION abnormal record due to the presence of theta and delta activity though there is no evidence of any paroxysmal discharge. these abnormalities are suggestive of underlying organic or metabolic encephalopathy or postictal state clinical correlation recommended
--- NOTE | 2020-05-12 10:26 | PCDIET ---
Nutrition Follow-Up Complete: Nutrition Diagnosis: Inadequate oral intake related to oral intubation as evidenced by need for enteral feedings. Nutrition Goal: Patient to meet estimated nutritional needs. Goal in progress. Patient had been tolerating Vital 1.2 at 50mL/hr but currently on hold due to vomiting. RN reports vomiting appeared to be related to gagging. Last recorded weight is 88.2 kg which is increased from last review, despite -I/O. Bowel Motility: BM x 1 on 05/11/20. Labs Reviewed: Glu (123), Cr (0.5), K (3.3), Na (127), Alb (2.6), Alexander Ca (8.32) Meds Noted: Acyclovir, Rocephin, Protonix, Zosyn, KCl, Vancomycin, NS at 100mL/hr Additional Notes: No change in skin documented. Recommend resuming enteral feedings once able. Would consider advancing tube to jejunum if vomiting persists. Nutrition Monitoring and Evaluation: Follow up every Monday/Monday. Follow daily in ICU rounds.
--- NOTE | 2020-05-12 11:12 | WPDINTPN ---
Progress Note: A&P Assessment and Plan (1) Acute respiratory failure: Qualifiers: Respiratory failure complication: hypoxia Qualified Code(s): J96.01 - Acute respiratory failure with hypoxia Code(s): J96.00 - Acute respiratory failure, unspecified whether with hypoxia or hypercapnia Status: Acute Assessment and Plan: acute respiratory failure likely secondary to altered mental status, possible increased drug intake, pneumonia - patient was intubated on the field by EMS on 05/08/2020 - chest x-ray and ABG reviewed - vent settings reviewed - sedated with propofol, became tachypneic and tachycardic on decreasing sedation but did not follow any commands (2) Severe sepsis: Code(s): A41.9 - Sepsis, unspecified organism; R65.20 - Severe sepsis without septic shock Status: Acute Assessment and Plan: lactic acidosis, fevers, leukocytosis, acute respiratory failure, seizures - adequately fluid-resuscitated - repeat lactic acid levels are normal - IV fluids decreased - continue antibiotics as below - blood culture obtained negative to date - UA did not reveal UTI - Echocardiogram done today did not showed any vegetations (3) Seizures: Code(s): R56.9 - Unspecified convulsions Status: Acute Assessment and Plan: patient presented with seizures, unknown cause at this time. patient also febrile - continue Keppra - Ativan p.r.n. - EEG - abnormal record due to the presence of theta and delta activity though there is no evidence of any paroxysmal discharge. these abnormalities are suggestive of underlying organic or metabolic encephalopathy or postictal state clinical correlation recommended - CT scan of the brain with contrast showed multiple intracranial masses concerning for metastatic disease vs abscesses. - unable to obtain MRI at this hospital while patient is on a ventilator - continue propofol and Keppra, - LP was done 05/11 opening pressure was high, CSF study suggestive of bacterial meningitis, g stain negative and culture pending, other viral studies are pending. patient on vancomycin and Rocephin - off sedation patient neuro exam today as mentioned above. no purposeful movement or following commands - patient needs an MRI, continuous EEG monitoring and neurosurgery evaluation for possible elevated intracranial pressure. I spoke [facility] Dr Holland [facility] Rubio at [facility] for transfer. [facility] has accepted the patient and he will be transferred once bed is available. I have spoken to patient's sister and mother and updated them with course from last couple of days, findings of testing, patient's current status and plan to transfer. They are agreeable to transfer patient to [facility] (4) Encephalopathy: Code(s): G93.40 - Encephalopathy, unspecified Status: Acute Assessment and Plan: see above (5) Electrolyte abnormality: Code(s): E87.8 - Other disorders of electrolyte and fluid balance, not elsewhere classified Status: Acute Assessment and Plan: Potassium being aggressively replaced along with magnesium. phosphate in normal range today - urine output is improved was still high. patient remains hyponatremic but stable - continue to replace potassium - CK levels trending down - discussed with Nephrology. I will decrease IV fluids and monitor urine output (6) Anemia: Qualifiers: Anemia type: unspecified type Qualified Code(s): D64.9 - Anemia, unspecified Code(s): D64.9 - Anemia, unspecified Status: Acute Assessment and Plan: hemoglobin of 6.8, positive stool occult in the ER per physician. normocytic anemia - 2 units of packed RBCs transfused on 05/08/2020 - hemoglobin remains stable - continue PPI IV q.12 hours - iron studies reflective of anemia of chronic disease. - appreciate GI evaluation recommendations. Stool for occult blood was negative
--- NOTE | 2020-05-12 11:21 | PM.PNNEP ---
Progress Note: A&P Assessment and Plan (1) Electrolyte abnormality: Code(s): E87.8 - Other disorders of electrolyte and fluid balance, not elsewhere classified Status: Acute Assessment and Plan: 1. Acid base He has respiratory alkalosis. he has a process in his brain which may also be promoting respiratory alkalosis. this may b in a transition from acute to chronic Resp alk. metabolic alkalosis is gradually improving. UpH is 7. 2. He has polyuria. U.O. is down. the patient made only 3 L urine yesterday. 3. The patient has hypokalemia. probably TBK depleted. repleted K today 4. The patient has hyponatremia. This might be due to the Amitriptyline or due to the narcotics, or his LAND SURVEYING SURVEY WORKER issue, each of which can each cause SIADH. this is stable. 5. The patient has hypomagnesemia. resolved. 6. Calcium is low. albumin low as well. ICa pending. (2) Abnormal brain CT: Code(s): R90.89 - Other abnormal findings on diagnostic imaging of central nervous system Status: Acute Assessment and Plan: The patient has lesions in brain and lung. ?toxo? ID consulted. (3) Rhabdomyolysis: Qualifiers: Rhabdomyolysis type: non-traumatic Qualified Code(s): M62.82 - Rhabdomyolysis Code(s): M62.82 - Rhabdomyolysis Status: Acute Assessment and Plan: CK improving (4) Elevated blood pressure reading: Code(s): R03.0 - Elevated blood-pressure reading, without diagnosis of hypertension Status: Acute Assessment and Plan: His blood pressure is running pretty well right now. (5) Acute respiratory failure: Qualifiers: Respiratory failure complication: hypoxia Qualified Code(s): J96.01 - Acute respiratory failure with hypoxia Code(s): J96.00 - Acute respiratory failure, unspecified whether with hypoxia or hypercapnia Status: Acute Assessment and Plan: He is on the ventilator in getting supportive care (6) Anemia: Qualifiers: Anemia type: unspecified type Qualified Code(s): D64.9 - Anemia, unspecified Code(s): D64.9 - Anemia, unspecified Status: Acute Assessment and Plan: His iron levels are low. Will supplement this after cultures come back negative. negative stool guaiacs. (7) Seizures: Code(s): R56.9 - Unspecified convulsions Status: Acute Assessment and Plan: Supportive care Additional Plan Discussed at length with Dr. Moore. to be transferred to [facility] Subjective Date/time seen: 05/12/20 11:21 Interval history: Patient is on the ventilator. He is off sedatives. he is still unresponsive. He cannot give a history. looks comfortable on the vent. Review of Systems Review of Systems: ROS unobtainable: Yes unobtainable due to medical condition Exam Narrative: Exam Narrative: WDWN on vent in ICU skin no rash or sq nodules head ncat lungs Course bialterally cor reg no rub abd BS+ nontender and soft ext no edema or cyanosis. Objective Data Vital Signs Vital Signs: Vital Signs - 24 hr 05/11/20 12:00 05/11/20 13:30 05/11/20 13:58 Temperature 39.0 C H 39.0 C H Pulse Rate 128 H 97 Respiratory Rate 31 H 52 H Blood Pressure 141/92 H 138/87 Pulse Oximetry 96 97 05/11/20 14:00 05/11/20 14:33 05/11/20 14:54 Temperature 36.9 C Pulse Rate 129 H 107 H Respiratory Rate 31 H 48 H Blood Pressure 124/79 110/86 Pulse Oximetry 97 100 05/11/20 14:56 05/11/20 16:00 05/11/20 17:15 Temperature 37.2 C Pulse Rate 102 H 91 88 Respiratory Rate 22 H Blood Pressure 131/94 H Pulse Oximetry 99 99 99 05/11/20 18:00 05/11/20 18:30 05/11/20 20:00 Temperature 37.1 C 37.3 C Pulse Rate 91 88 108 H Respiratory Rate 16 34 H 27 H Blood Pressure 122/82 141/93 H Pulse Oximetry 100 100 05/11/20 20:38 05/11/20 22:00 05/11/20 22:21 Temperature Pulse Rate 108 H 118 H 116 H Respiratory Rate 28 H 27 H Blood Pressure 148
[2020-05-12 12:38] LABS: Glucose Point of Care 114 (65-105)
[2020-05-12] MEDS: ACETAMINOPHEN 325 MG TABLET 650 MG PO (12:41)
--- NOTE | 2020-05-12 13:04 | WPDINFPN2 ---
Progress Note: A&P Assessment and Plan (1) Leukocytosis: Code(s): D72.829 - Elevated white blood cell count, unspecified Status: Acute Assessment and Plan: 1. Leukocytosis, ? S aureus CAP vs other. BRITTNY isolated. 2. Polysubstance abuse 3. CSF pleocytosis, formula suggests bacterial infection. Multiple brain lesions on CT REC Ctx, and stop vanc. F/U micro. Possible brain MRI if above nondiagnositic, will defer to Neurology. Subjective Date/time seen: 05/12/20 13:04 Interval history: sedated and intubated Exam Narrative: Exam Narrative: t max 39.2 core Const: General: no acute distress Eyes: General: appearance normal, both eyes and all related structures Resp: Effort & Inspection: normal respiratory effort Auscultation: clear to auscultation bilaterally Cardio: Rate: tachycardic Rhythm: regular rhythm Heart sounds: no gallops and no murmurs GI: Inspection: non-distended GI Palp: Yes Soft to palpation and No Tenderness to palpation present (GI) Urinary Catheter: Urinary Catheter: patent and draining and urine clear Skin: General skin exam: normal color and no rashes or lesions noted Objective Data Vital Signs Vital Signs: Vital Signs - 24 hr 05/11/20 13:30 05/11/20 13:58 05/11/20 14:00 Temperature 39.0 C H Pulse Rate 97 129 H Respiratory Rate 52 H 31 H Blood Pressure 138/87 124/79 Pulse Oximetry 97 97 05/11/20 14:33 05/11/20 14:54 05/11/20 14:56 Temperature 36.9 C Pulse Rate 107 H 102 H Respiratory Rate 48 H Blood Pressure 110/86 Pulse Oximetry 100 99 05/11/20 16:00 05/11/20 17:15 05/11/20 18:00 Temperature 37.2 C 37.1 C Pulse Rate 91 88 91 Respiratory Rate 22 H 16 Blood Pressure 131/94 H 122/82 Pulse Oximetry 99 99 100 05/11/20 18:30 05/11/20 20:00 05/11/20 20:38 Temperature 37.3 C Pulse Rate 88 108 H 108 H Respiratory Rate 34 H 27 H Blood Pressure 141/93 H Pulse Oximetry 100 100 05/11/20 22:00 05/11/20 22:21 05/11/20 23:04 Temperature Pulse Rate 118 H 116 H 116 H Respiratory Rate 28 H 27 H Blood Pressure 148/99 H Pulse Oximetry 100 100 05/12/20 00:00 05/12/20 02:00 05/12/20 02:51 Temperature 37.8 C H Pulse Rate 117 H 123 H 124 H Respiratory Rate 26 H 30 H Blood Pressure 144/46 H 141/96 H Pulse Oximetry 98 97 97 05/12/20 04:00 05/12/20 04:39 05/12/20 06:00 Temperature 37.9 C H Pulse Rate 119 H 113 H 105 H Respiratory Rate 29 H 14 Blood Pressure 130/91 H 119/79 Pulse Oximetry 97 97 100 05/12/20 06:09 05/12/20 07:09 05/12/20 07:26 Temperature Pulse Rate 102 H 97 97 Respiratory Rate 16 23 H 23 H Blood Pressure Pulse Oximetry 05/12/20 08:00 05/12/20 08:45 05/12/20 10:00 Temperature 37.6 C 37.6 C Pulse Rate 96 110 H 109 H Respiratory Rate 20 24 H Blood Pressure 123/86 153/102 H Pulse Oximetry 100 100 100 05/12/20 12:00 05/12/20 12:41 Temperature 39.2 C H 39.2 C H Pulse Rate 115 H Respiratory Rate 25 H Blood Pressure 148/100 H Pulse Oximetry 100 Intake/Output Intake/Output: Intake & Output 05/10/20 05/10/20 05/11/20 05/12/20 00:59 23:59 23:59 23:59 Intake Total 4280.0 1991.0 Output Total 4850 850 Balance -570.0 1141.0 Meds/Results Medications: Active Medications Generic Name Dose Route Start Last Admin Trade Name Freq PRN Reason Stop Dose Admin Acetaminophen 650 mg 05/12/20 12:25 05/12/20 12:41 Acetaminophen 325 Mg Tablet PO 650 mg Q4H PRN Administration Mild Pain (1-3) or Fever Dextrose 12.5 gm 05/08/20 14:35 Dextrose 50% 25 Gm/50 Ml Syringe IV PUSH PRN PRN Hypoglycemia Protocol Glucagon 1 mg 05/08/20 14:35 Glucagon For Inj 1 Mg Vial IM PRN PRN Hypoglycemia Protocol Glucose 15 gm 05/08/20 14:35 Glucose Oral Gel 15 Gm Of Glucse In 37.5 Gm Tube PO PRN PRN Hypoglycemia Protocol Dextrose 1,000 mls @ 100 mls/hr 05/08/20 14:35 Dextrose 5% 1,000 Ml IVPB
--- NOTE | 2020-05-12 16:59 | P.TS_ITS ---
Transfer Discharge Sum: Prov Provider Date of admission: 05/08/20 13:19 Primary care physician: Asaf Lynn MD Admitting clinician: Varun Regalado MD Consults: 05/08/20 13:21 Consult to Physician Routine Comment: Consulting Provider: Enmanuel North Reason for consultation: Intubated Has provider been notified: Yes 05/08/20 13:22 Consult to Physician Routine Comment: Consulting Provider: Tai Murray Reason for consultation: Hyponatremia, hypokalemia Has provider been notified: Yes 05/08/20 14:39 Consult to Physician Routine Comment: SPOKE WITH DR. NARVAEZ Consulting Provider: Jovi Narvaez order desk caller/MD group to consult: neurology Reason for consultation: seizures Has provider been notified: Yes 05/08/20 16:56 Consult to Physician Routine Comment: CONSULT CALLED TO EXCHANGE Consulting Provider: Tone Loya order desk caller/MD group to consult: GI consult Reason for consultation: Decreased Hemoglobin/Hx reported by family of rectal bleeding Has provider been notified: Yes 05/09/20 15:00 Consult to Physician Routine Comment: Consulting Provider: Jack Conroy order desk caller/MD group to consult: INFECTIOUS DISEASE Reason for consultation: Pulmonary abscess or necrotizing pneumonia, intracranial mass / ? abscess Has provider been notified: Yes DS: Admitting Diagnosis Admitting Diagnosis Admitting Diagnosis: Unresponsive. 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 given the CT findings * Abx adjusted; Rocephin continued and vancomycin as well as antivirals were discontinued * transferred to [facility] (3) Pneumonia: Qualifiers: Pneumonia type: due to unspecified organism Laterality: bilateral Lung location: unspecified part of lung Qualified Code(s): J18.9 - Pneumonia, unspecified organism Code(s): J18.9 - Pneumonia, unspecified organism Status: Acute Assessment and Plan: * CT chest 05/09 showing RLL airspace opacities with areas suggestive of pulmonary abscess or necrotizing pneumonia and a right suprahilar soft tissue density, mass versus lymphadenopathy. Right hilar, mediastinal, and supraclavicular lymphadenopathy also noted. * BCx NGTD; Sputum growing Staph aureus * Continue IV abx as above * Send sputum for cytology (4) Acute respiratory failure: Qualifiers: Respiratory failure complication: hypoxia Qualified Code(s): J96.01 - Acute respiratory failure with hypoxia Code(s): J96.00 - Acute respiratory failure, unspecified whether with hypoxia or hypercapnia Status: Acute Assessment and Plan: * Due to pneumonia, encephalopathy * Continue mechanical ventilation (5) Abnormal brain CT: Code(s): R90.89 - Other abnormal findings on diagnostic imaging of central nervous system Status
--- NOTE | 2020-05-12 16:59 | PM.TDS ---
Transfer Discharge Sum: Prov Provider Date of admission: 05/08/20 13:19 Primary care physician: Asaf Lynn MD Admitting clinician: Varun Regalado MD Consults: 05/08/20 13:21 Consult to Physician Routine Comment: Consulting Provider: Enmanuel North Reason for consultation: Intubated Has provider been notified: Yes 05/08/20 13:22 Consult to Physician Routine Comment: Consulting Provider: Tai Murray Reason for consultation: Hyponatremia, hypokalemia Has provider been notified: Yes 05/08/20 14:39 Consult to Physician Routine Comment: SPOKE WITH DR. NARVAEZ Consulting Provider: Jovi Narvaez call center operations manager/MD group to consult: neurology Reason for consultation: seizures Has provider been notified: Yes 05/08/20 16:56 Consult to Physician Routine Comment: CONSULT CALLED TO EXCHANGE Consulting Provider: Tone Loya call center operations manager/MD group to consult: GI consult Reason for consultation: Decreased Hemoglobin/Hx reported by family of rectal bleeding Has provider been notified: Yes 05/09/20 15:00 Consult to Physician Routine Comment: Consulting Provider: Jack Conroy call center operations manager/MD group to consult: INFECTIOUS DISEASE Reason for consultation: Pulmonary abscess or necrotizing pneumonia, intracranial mass / ? abscess Has provider been notified: Yes DS: Admitting Diagnosis Admitting Diagnosis Admitting Diagnosis: Unresponsive. DS: Discharge Diagnosis Discharge Diagnosis (1) Encephalopathy: Code(s): G93.40 - Encephalopathy, unspecified Status: Acute Assessment and Plan: Due to pneumonia, sepsis, seizure, electrolyte abnormalities and brain lesions Needs MRI brain and transferred to [facility] for further treatment CSF fluid is still no growth at discharge (2) Severe sepsis: Code(s): A41.9 - Sepsis, unspecified organism; R65.20 - Severe sepsis without septic shock Status: Acute Assessment and Plan: Due to pneumonia,MSSA on sputum culture Can not exclude [employer] infection given the CT findings Abx adjusted; Rocephin continued and vancomycin as well as antivirals were discontinued transferred to [facility] (3) Pneumonia: Qualifiers: Pneumonia type: due to unspecified organism Laterality: bilateral Lung location: unspecified part of lung Qualified Code(s): J18.9 - Pneumonia, unspecified organism Code(s): J18.9 - Pneumonia, unspecified organism Status: Acute Assessment and Plan: CT chest 05/09 showing RLL airspace opacities with areas suggestive of pulmonary abscess or necrotizing pneumonia and a right suprahilar soft tissue density, mass versus lymphadenopathy. Right hilar, mediastinal, and supraclavicular lymphadenopathy also noted. BCx NGTD; Sputum growing Staph aureus Continue IV abx as above Send sputum for cytology (4) Acute respiratory failure: Qualifiers: Respiratory failure complication: hypoxia Qualified Code(s): J96.01 - Acute respiratory failure with hypoxia Code(s): J96.00 - Acute respiratory failure, unspecified whether with hypoxia or hypercapnia Status: Acute Assessment and Plan: Due to pneumonia, encephalopathy Continue mechanical ventilation (5) Abnormal brain CT: Code(s): R90.89 - Other abnormal findings on diagnostic imaging of central nervous system Status: Acute Assessment and Plan: CT brain on admission showing asymmetrical-defined focal diminished attenuation in right periventricular area with impression upon the right frontal horn CT brain with contrast 05/09: Multiple intracranial masses concerning for metastatic disease although differential would include abscesses. neoplasm vs showering infectious emboli vs demyelination HIV negative; Echo showing no obvious vegetations LP performed suggesting bacterial with low glucose and high protein and neutrophils. Needs MRI Abx as abo
[2020-05-13 07:56] LABS: Osmolality, Urine 82 mOsm/kg (50-1200)
[2020-05-13 10:28] LABS: Herpes Simplex Type 1 DNA PCR Not Detected (Not Detected); Herpes Simplex Type 2 DNA PCR Not Detected (Not Detected)
[2020-05-13 13:21] LABS: Methyl Alcohol Level None Detected (None Detected)
[2020-05-13 14:12] LABS: VDRL Quantitative CSF Nonreactive (Nonreactive)
[2020-05-14 07:35] LABS: Ionized Calcium 4.6 mg/dL (4.8-5.6)
[2020-05-14 16:32] LABS: Chloride Rand Ur 27 mmol/L (32-290); Chloride/Creatinine Rand Ur 415 (23-275); Creatinine Random Urine 7 mg/dL (20-320)
== END 2020-05-12 16:06 | disposition short-term general hospital (02) | DRG 720 ==
LOC: ANHED 10:48 → ANHICU 16:37
PROVIDERS: Internal Medicine; Internal Medicine Nephrology; Physician Assistant; Admitting Provider Internal Medicine; Emergency Provider Emergency Medicine; PCP Family Medicine Adolescent Medicine; Visit Provider Internal Medicine
DX: A41.01 Sepsis due to Methicillin susceptible Staphylococcus aureus (principal); R65.20 Severe sepsis without septic shock; J18.9 Pneumonia, unspecified organism; Z20.828 Contact with and (suspected) exposure to other viral communicable diseases; R56.9 Unspecified convulsions; J96.01 Acute respiratory failure with hypoxia; G93.41 Metabolic encephalopathy; E87.1 Hypo-osmolality and hyponatremia; M62.82 Rhabdomyolysis; R73.9 Hyperglycemia, unspecified; G89.29 Other chronic pain; D63.8 Anemia in other chronic diseases classified elsewhere; F41.9 Anxiety disorder, unspecified; M54.9 Dorsalgia, unspecified; F17.210 Nicotine dependence, cigarettes, uncomplicated; E87.6 Hypokalemia; E83.42 Hypomagnesemia; R03.0 Elevated blood-pressure reading, without diagnosis of hypertension; R90.89 Other abnormal findings on diagnostic imaging of central nervous system
CPT/HCPCS: 36415; 36430; 36569; 36600; 62328; 70450; 70460; 71045; 71260; 72125; 74177; 80048; 80053; 80069; 80202; 80299; 80307; 81001; 82274; 82330; 82375; 82436; 82550; 82570; 82607; 82728; 82746; 82805; 82945; 83036; 83050; 83540; 83550; 83605; 83615; 83735; 83930; 83935; 84100; 84133; 84156; 84157; 84300; 84443; 84600; 85014; 85018; 85025; 85027; 85610; 85730; 86140; 86592; 86703; 86850; 86900; 86901; 86923; 87015; 87040; 87070; 87077; 87116; 87186; 87205; 87206; 87529; 87635; 88108; 89051; 94003; 95816; 96365; 96368; 96375; 99285; A9270; C1751; C8929; C9113; C9803; G0432; J0131; J0133; J0696; J0743; J1953; J2060; J2543; J2704; J3360; J3370; J3475; J3480; J7030; J7050; J7060; P9016; Q9957; Q9967; U0003

== ENCOUNTER 2022-12-02 08:41 | Outpatient (CLI) | payer OTHER, SELFPAY ==
--- NOTE | ~2022-12-02 | XR_ITS ---
EXAMINATION: XR barium swallow modified DATE: 12/02/2022 09:54 INDICATION: Frequent aspiration with feeding TECHNIQUE: Modified barium esophagram was performed by myself who administered fluoroscopy, in conju nction with speech pathologist who administered barium in varying consistencies as per speech patholo gist documentation. This was recorded on tape. A single fluoroscopic spot image was recorded. Fluoros copy exposure time was 1.8 minutes. The DAP for this procedure was 1.13 Gycm2. FINDINGS: Oral stage: Adequate function. Pharyngeal phase: Adequate function. Laryngeal penetration: None. Aspiration: None. Laryngeal sensitivity: Not applicable. IMPRESSION: Unremarkable modified barium swallow. Please refer to speech pathologist findings and spe [facility] feeding recommendations. Reviewed, dictated and finalized at location [facility]. IMPRESSION: Unremarkable modified barium swallow. Please refer to speech pathol ogist findings and specific feeding recommendations.
--- NOTE | ~2022-12-02 | MR_ITS ---
MRI of the lumbar spine Clinical History: Chronic right sciatica Technique: Axial T2-weighted images, and sagittal T1-weighted, T2-weighted, and T2 fat-sat images wer e acquired. Findings: There is no fracture nor lumbar spine. Minimal grade 1 retrolisthesis of L2 over L3 noted. No suspicious bone marrow signal abnormality seen. At L1-L2, there is no disc bulge or herniation. There is minimal facet arthropathy. No spinal canal s tenosis or neural foraminal narrowing. At L2-L3, there is mild degenerative disc narrowing. There is advanced facet arthropathy. No spinal c anal stenosis or neural foraminal narrowing. At L3-L4, there is mild disc bulge with advanced facet arthropathy. No central canal stenosis. There is moderate left neural foraminal narrowing and moderate to severe right neural foraminal narrowing. At L4-L5, there is mild degenerative disc narrowing. There is minimal disc bulge with advanced facet arthropathy. No central canal stenosis. There is moderate right neural foraminal narrowing. Left neur al foramen preserved. At L5-S1, there is mild diffuse disc bulge with moderate facet arthropathy. No central canal stenosis . There is minimal right neural foraminal narrowing. Left neural foramen preserved. Paravertebral soft tissues are unremarkable. Impression: [id number] degenerative spondylosis, with multilevel neural foraminal narrowing at the lower antionette mbar spine, as detailed above. Minimal grade 1 retrolisthesis of L2 over L3. Reviewed, dictated and finalized at [facility]. Impression: [id number] degenerative spondylosis, with multilevel neural foraminal mark rowing at the lower lumbar spine, as detailed above. Minimal grade 1 retrolisthesis of L2 over L3.
--- NOTE | 2022-12-02 16:19 | REHSTMBS ---
Assessment and note entered by Nadiya Washington, [employer] Modified Barium Swallow Evaluation Feeding Type Recommended Oral Food Consistency Regular, Level 7 Liquid Consistency Thin (0) ST Clinical Summary MODIFIED BARIUM SWALLOW STUDY Patient was seen for a Modified Barium Swallow study to rule out risk for aspiration. 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 He reports that he gasps when he has food or liquid in the mouth and has to spit out what is in his mouth. He did point to the esophageal area when asked where he feels the material stop. It was difficult to determine from this gentleman's explanations if he were truly having a swallowing issue or a reflux issue. Patient was presented with small then larger amounts of thin liquid contrast medium, then pudding mixed with semi-solid contrast medium, and then fruit pieces and dorota cracker pieces both coated with the semi-solid mixture. Patient exhibited no signs of aspiration or risk for aspiration throughout this evaluation although he continually stated he wished he would have trouble so that we could see the trouble. Results indicate this patient's actual swallowing skills appear to be within normal limits. He was instructed to eat slowly and take small bites and sips, and to use head flexion when swallowing. He voiced understanding. No further ST indicated Thank you for this referral.
== END 2022-12-02 08:42 | disposition home or self-care (01) ==
PROVIDERS: PCP Family Medicine Adolescent Medicine; Visit Provider Family Medicine Adolescent Medicine
DX: M54.31 Sciatica, right side (principal); T17.908A Unspecified foreign body in respiratory tract, part unspecified causing other injury, initial encounter; M47.896 Other spondylosis, lumbar region
CPT/HCPCS: 72148; 92611